=== PATIENT | female | born 1955 | race Caucasian/White ===

== ENCOUNTER 2021-10-07 12:04 | Inpatient (IN) | payer MEDICARE ==
[2021-10-07] VITALS (7 sets, daily range): BP systolic 83–107; BP diastolic 69–87
[~2021-10-07] VITALS: Ht 162.6 cm; Wt 62.2 kg
[2021-10-07] MEDS ORDERED: ASPIRIN 325 MG TABLET PO ONE (13:45)
[2021-10-07 13:47] LABS: BASO % 0 % (0-3); EOS % 0 % (0-3); HEMATOCRIT 47.1 % (36.0-47.0); HEMOGLOBIN 16.1 g/dL (12.0-15.5); LYMPH # 1.6 x10^3/uL (1.0-4.8); LYMPH % 18 % (24-48); MEAN CORPUSCULAR HEMOGLOBIN 35 pg (25-35); MEAN CORPUSCULAR HGB CONC 34 g/dL (31-37); MEAN CORPUSCULAR VOLUME 103 fL (79-100); MONO # 0.9 x10^3/uL (0.0-1.1); MONO % 10 % (0-9); NEUT # 6.3 x10^3/uL (1.8-7.7); NEUT % 72 % (31-73); PLATELET COUNT 221 x10^3/uL (140-400); RED BLOOD COUNT 4.57 x10^6/uL (3.50-5.40); RED CELL DISTRIBUTION WIDTH 13.5 % (11.5-14.5); WHITE BLOOD COUNT 8.8 x10^3/uL (4.0-11.0)
--- NOTE | 2021-10-07 13:51 | PHYS DOC ---
Past Medical History Past Surgical History: Appendectomy, Hysterectomy Additional Past Surgical Histo: Hernia repair and breast implants and removal of breast implants. General Adult EDM: Chief Complaint: MULTIPLE COMPLAINTS HPI: HPI: Patient is a 66 year old female with no significant medical history presenting today complaining of her heart racing. Patient states she was diagnosed with A. fib on Tuesday, she states she was seen by the PCP for toe nail removal and mentioned her heart was racing, PCP sent her to urgent care where she was diagnosed with A. fib, she states she was started on Cardizem, and was supposed to be admitted, she states she signed out AMA because it was taking too long. She states her heart is still racing. Denies any chest pain, shortness of breath. Review of Systems: Review of Systems: Constitutional: Denies fever or chills. [] Eyes: Denies change in visual acuity. [] HENT: Denies nasal congestion or sore throat. [] Respiratory: Denies cough or shortness of breath. [] Cardiovascular: Reports palpitations GI: Denies abdominal pain, nausea, vomiting, bloody stools or diarrhea. [] : Denies dysuria. [] Musculoskeletal: Denies back pain or joint pain. [] Integument: Denies rash. [] Neurologic: Denies headache, focal weakness or sensory changes. [] Psychiatric: Denies depression or anxiety. [] Heart Score: C/O Chest Pain: N/A Risk Factors: Risk Factors: DM, Current or recent (<one month) smoker, HTN, HLP, family history of CAD, obesity. Risk Scores: Score 0 - 3: 2.5% MACE over next 6 weeks - Discharge Home Score 4 - 6: 20.3% MACE over next 6 weeks - Admit for Clinical Observation Score 7 - 10: 72.7% MACE over next 6 weeks - Early Invasive Strategies Current Medications: Current Medications Medications (Trade) Dose Ordered Sig/Toan Start Time Stop Time Status Last Admin Dose Admin Aspirin (Estefania Aspirin) 325 mg 1X ONCE 10/07/21 13:45 10/07/21 13:46 DC Diltiazem HCl (Cardizem Iv Push) 20 mg 1X ONCE 10/07/21 13:45 10/07/21 13:46 DC Diltiazem HCl 125 mg/Sodium Chloride 125 ml @ 10 mls/hr 1X ONCE 10/07/21 13:45 10/08/21 02:14 Allergies: Allergies: Allergies Coded Allergies Type Severity Reaction Last Updated Verified No Known Drug Allergies 10/07/21 No Physical Exam: PE: Constitutional: Well developed, well nourished, no acute distress, non-toxic appearance. [] HENT: Normocephalic, atraumatic, bilateral external ears normal, oropharynx moist, no oral exudates, nose normal. [] Eyes: PERRLA, EOMI, conjunctiva normal, no discharge. [] Neck: Normal range of motion, no tenderness, supple, no stridor. [] Cardiovascular: Irregularly irregular Lungs & Thorax: Bilateral breath sounds clear to auscultation [] Abdomen: Bowel sounds normal, soft, no tenderness, no masses, no pulsatile masses. [] Skin: Warm, dry, no erythema, no rash. [] Back: No tenderness, no CVA tenderness. [] Extremities: No tenderness, no cyanosis, no clubbing, ROM intact, no edema. [] Neurologic: Alert and oriented X 3, normal motor function, normal sensory function, no focal deficits noted. [] Psychologic: Affect normal, judgement normal, mood normal. [] Current Patient Data: Vital Signs: Vital Signs Date Time Temp Pulse Resp B/P (MAP) Pulse Ox O2 Delivery O2 Flow Rate FiO2 10/07/21 12:30 98.2 93 20 120/96 (104) 94 Room Air 98.2 EKG: EK interpreted by Dr. Bruno frias with RVR heart rate 139 no STEMI Radiology/Procedures: Radiology/Procedures: []PROCEDURE: PORTABLE CHEST 1V EXAM: XR CHEST 1V 10/07/2021 1:40 PM CLINICAL INDICATION: Palpitations COMPARISON: None TECHNIQUE: AP upright view of the chest FINDINGS: The heart is enlarged. There are right basilar airspace opacities. Small right pleural effusion. The left lung is clear. No pneumothorax. IMPRESSION: 1. Right basilar opacities suspicious for pneumonia. Small right pleural effusion. 2. Cardiomegaly. Electronically signed by: Brittany Fortune MD (10/07/2021 1:55 PM) [id number] DICTATED and SIGNED BY: BRITTANY FORTUNE MD DATE: 10/07/21 [id number] 0 Course & Med Decision Making: Course & Med Decision Making Pertinent Labs and Imaging studies reviewed. (See chart for details) This is a 66-year-old female patient who presents to the ED today complaining of palpitations. She was diagnosed with A. fib on Tuesday and started on Cardizem she is supposed to be admitted, she signed out AGAINST MEDICAL ADVICE. EKG shows A. fib with RVR, given Cardizem push and started on Cardizem drip. CBC with a normal WBC, hemoglobin 16.1 with hematocrit of 47.1, CMP with potassium of 2.9, patient was given oral potassium replacement, magnesium 1.5, alcohol level 20. BNP 1524 Chest x-ray noted for right lower lobe pneumonia, blood cultures were ordered, patient was also started on IV antibiotics. Spoke with Cydney DUMONT for cardiology who will follow up with patient Spoke with Dr. Alamo who accepted patient for admission Dragon Disclaimer: Elizabeth Disclaimer: This electronic medical record was generated, in whole or in part, using a voice recognition dictation system. Departure Departure Impression: Primary Impression: Atrial fibrillation with RVR Additional Impressions: RLL pneumonia Qualified Codes: J18.9 - Pneumonia, unspecified organism ETOH abuse Hypokalemia Disposition: ADMITTED INPATIENT Condition: STABLE AUDELIA VARELA LEAD QUALITY TECHNICIAN Oct 07, 2021 13:51
--- NOTE | 2021-10-07 13:58 | RAD ---
EXAM: XR CHEST 1V 10/07/2021 1:40 PM CLINICAL INDICATION: Palpitations COMPARISON: None TECHNIQUE: AP upright view of the chest FINDINGS: The heart is enlarged. There are right basilar airspace opacities. Small right pleural eff usion. The left lung is clear. No pneumothorax. IMPRESSION: 1. Right basilar opacities suspicious for pneumonia. Small right pleural effusion. 2. Cardiomegaly. Electronically signed by: Brittany Fortune MD (10/07/2021 1:55 PM) [id number]
[2021-10-07 14:15] LABS: ALBUMIN 3.4 g/dL (3.4-5.0); ALBUMIN/GLOBULIN RATIO 0.8 (1.0-1.7); CALCIUM 8.8 mg/dL (8.5-10.1); CREATININE 0.7 mg/dL (0.6-1.0); MAGNESIUM 1.5 mg/dL (1.8-2.4); TOTAL PROTEIN 7.6 g/dL (6.4-8.2)
[2021-10-07 14:32] LABS: POTASSIUM 2.9 mmol/L (3.5-5.1)
[2021-10-07] MEDS ORDERED: POTASSIUM CHLORIDE 20 MEQ TABLET.ER. PO ONE ×2 (14:45→19:30)
[2021-10-07 15:25] LABS: BILIRUBIN,URINE SMALL (NEG); CLARITY,URINE CLEAR; COLOR,URINE AMBER; NITRITE,URINE NEGATIVE (NEG); PROTEIN,URINE 100 mg/dL (NEG-TRACE)
[2021-10-07 15:33] LABS: BARBITURATES NEG (NEG); BENZODIAZEPINES POS (NEG); CANNABINOIDS NEG (NEG); COCAINE NEG (NEG); METHADONE NEG (NEG); OPIATES NEG (NEG); PHENCYCLIDINE NEG (NEG)
[2021-10-07 15:36] LABS: AMPHETAMINE/METHAMPHETAMINE NEG (NEG)
[2021-10-07] MEDS ORDERED: ONDANSETRON PF 4 MG/2 ML VIAL. IVP ONE (15:45)
[2021-10-07 16:00] LABS: BACTERIA,URINE FEW /HPF (0-FEW)
[2021-10-07] MEDS ORDERED: cefTRIAXone IV Push 1 GM VIAL. IVP ONE (16:45)
[2021-10-07] MEDS ORDERED: MORPHINE SULFATE 2 MG/ML INJ. IVP PRN (16:45)
[2021-10-07] MEDS ORDERED: ACETAMINOPHEN 325 MG TABLET. PO PRN (16:45)
[2021-10-07] MEDS ORDERED: ONDANSETRON PF 4 MG/2 ML VIAL. IVP PRN (16:45)
--- NOTE | 2021-10-07 18:00 | EKG ---
[address] [place] [address] Test Date: 2021-10-07 Test Time: 12:48:02 Pat Name: CINDY LOYA Department: Room: ED [place] [id number] Gender: F Feed Management Advisor: - : [phone] Requested By: AUDELIA VARELA Order Number: [id number] Reading MD: Navid Nicholson Measurements Intervals [place] Rate: 139 P: HI: QRS: 0 QRSD: 108 T: 195 QT: 318 QTc: 489 Interpretive Statements RAPID ATRIAL FIBRILLATION LEFTWARD AXIS CONSIDER LEFT VENTRICULAR HYPERTROPHY NON SPECIFIC ST-T WAVE CHANGES Electronically Signed On 10-11-2021 18:04:03 AFLOAT CRYPTOLOGIC MANAGER by Navid Nicholson
[2021-10-07 18:15] LABS: INFLUENZA A PATIENT NEGATIVE (NEGATIVE); INFLUENZA B PATIENT NEGATIVE (NEGATIVE)
[2021-10-07] MEDS ORDERED: MAGNESIUM SULFATE 4GM 100 ML IV ONE (19:30)
[2021-10-07] MEDS ORDERED: MULTIVIT INFUSN,ADULT 4,VIT K 10 ML, THIAMINE INJ 100 MG, FOLIC ACID INJ 1 MG in IV NOR... IV ONE (20:00)
--- NOTE | 2021-10-07 20:02 | PDOC1 ---
History and Physical Date of Admission Date of Admission DATE: 10/07/21 TIME: 19:56 Source Source: Chart review, Patient History of Present Illness History of Present Illness Sis is a 66 year old female admit wtih palpitations, complained of her heart racing. Patient states she was diagnosed with A. fib on Tuesday, seen by the PCP and mentioned her heart was racing, Dr. Lucas sent her to urgent care where she was diagnosed with A. fib, did not want to be admitted to [facility]. tohay, she is short of breath and she states her heart is still racing. Denies any chest pain, shortness of breath. not prev. hospitalzied, never on before Past Medical History Cardiovascular: No pertinent hx Pulmonary: No pertinent hx GI: No pertinent hx Psych: Anxiety Musculoskeletal: low back pain Rheumatologic: No pertinent hx Infectious disease: No pertinent hx Renal/: No pertinent hx Endocrine: No pertinent hx Dermatology: No pertinent hx Family History Family History: No Significant Social History Smoke: 1 pack per day ALCOHOL: heavy Drugs: None Current Problem List Problem List Problems Medical Problems: (1) Atrial fibrillation with RVR Status: Acute (2) ETOH abuse Status: Acute (3) Hypokalemia Status: Acute (4) RLL pneumonia Status: Acute Current Medications Current Medications Current Medications Diltiazem HCl (Cardizem Iv Push) 20 mg 1X ONCE IVP Last administered on 10/07/21at 14:20; Start 10/07/21 at 13:45; Stop 10/07/21 at 13:46; Status DC Aspirin (Estefania Aspirin) 325 mg 1X ONCE PO Last administered on 10/07/21at 14:19; Start 10/07/21 at 13:45; Stop 10/07/21 at 13:46; Status DC Diltiazem HCl 125 mg/Sodium Chloride 125 ml @ 10 mls/hr 1X ONCE IV ; Start 10/07/21 at 13:45; Stop 10/07/21 at 13:51; Status DC Diltiazem HCl 125 mg/Sodium Chloride 125 ml @ 10 mls/hr 1X ONCE IV Last administered on 10/07/21at 15:24; Start 10/07/21 at 13:51; Stop 10/08/21 at 02:14 Potassium Chloride (Klor-Con) 40 meq 1X ONCE PO Last administered on 10/07/21at 15:23; Start 10/07/21 at 14:45; Stop 10/07/21 at 14:46; Status DC Ondansetron HCl (Zofran) 4 mg 1X ONCE IVP Last administered on 10/07/21at 15:52; Start 10/07/21 at 15:45; Stop 10/07/21 at 15:46; Status DC Ondansetron HCl (Zofran) 4 mg PRN Q8HRS PRN IVP NAUSEA/VOMITING; Start 10/07/21 at 16:45; Stop 10/08/21 at 16:44 Morphine Sulfate (Morphine Sulfate) 2 mg PRN Q2HR PRN IVP PAIN; Start 10/07/21 at 16:45; Stop 10/08/21 at 16:44 Acetaminophen (Tylenol) 650 mg PRN Q4HRS PRN PO FEVER > 100.3'F; Start 10/07/21 at 16:45; Stop 10/08/21 at 16:44 Ceftriaxone Sodium (Rocephin) 1 gm 1X ONCE IVP Last administered on 10/07/21at 17:40; Start 10/07/21 at 16:45; Stop 10/07/21 at 16:53; Status DC Potassium Chloride (Klor-Con) 40 meq 1X ONCE PO ; Start 10/07/21 at 19:30; Stop 10/07/21 at 19:31; Status DC Magnesium Sulfate 100 ml @ 25 mls/hr 1X ONCE IV ; Start 10/07/21 at 19:30; Stop 10/07/21 at 23:29 Multivitamins 10 ml/Thiamine HCl 100 mg/Folic Acid 1 mg/Sodium Chloride 1,011.2 ml @ 1,000.088 mls/hr 1X ONCE IV ; Start 10/07/21 at 20:00; Stop 10/07/21 at 21:00 Vitamin B Complex (Folbic Tablet) 1 tab DAILY PO ; Start 10/08/21 at 09:00 Lorazepam (Ativan) 1 mg PRN Q6HRS PRN PO ANXIETY / AGITATION; Start 10/07/21 at 19:30 Allergies Allergies: Coded Allergies: No Known Drug Allergies (Unverified , 10/07/21) ROS General: YES: Chills, Fatigue, Malaise PSYCHOLOGICAL ROS: YES: Anxiety, Irritablity, Sleep disturbances; No: Behavioral Disorder, Concentration difficultie, Decreased libido, Depression, Disorientation, Hallucinations, Hostility, Memory difficulties, Mood Swings, Obsessive thoughts, Other Eyes: No Blurry vision, No Decreased vision, No Double vision, No Dry eyes, No Excessive tearing, No Eye Pain, No Itchy Eyes, No Loss of vision, No Photophobia, No Scotomata, No Uses contacts, No Uses glasses, No Other HEENT: No: Heacaches, Visual Changes, Hearing change, Nasal congestion, Nasal discharge, Oral lesions, Sinus pain, Sore Throat, Epistaxis, Sneezing, Snoring, Tinnitus, Vertigo, Vocal changes, Other Respiratory: No: Cough, Hemoptysis, Orthopnea, Pleuritic Pain, Shortness of breath, SOB with excertion, Sputum Changes, Stridor, Tachypnea, Wheezing, Other Cardiovascular: yes Palpitations; No Chest Pain, No Orthopnea, No Paroxysmal Noc. Dyspnea, No Edema, No Lt Headedness, No Other Gastrointestinal: Yes Nausea; No Vomiting, No Abdominal Pain, No Diarrhea, No Constipation, No Melena, No Hematochezia, No Other Genitourinary: No Dysuria, No Frequency, No Incontinence, No Hematuria, No Retention, No Discharge, No Urgency, No Pain, No Flank Pain, No Other, No , No , No , No , No , No , No Musculoskeletal: No Gait Disturbance, No Joint Pain, No Joint Stiffness, No Joint Swelling, No Muscle Pain, No Muscular Weakness, No Pain In:, No Swelling In:, No Other Neurological: No Behavorial Changes, No Bowel/Bladder ControlChng, No Confusion, No Dizziness, No Gait Disturbance, No Headaches, No Impaired Coord/balance, No Memory Loss, No Numbness/Tingling, No Seizures, No Speech Problems, No Tremors, No Visual Changes, No Weakness, No Other Skin: Yes Dry Skin; No Eczema, No Hair Changes, No Lumps, No Mole Changes, No Mottling, No Nail Changes, No Pruritus, No Rash, No Skin Lesion Changes, No Other, No Acne Physical Exam General: Alert, Oriented X3, Cooperative, No acute distress HEENT: PERRLA, EOMI, Mucous membr. moist/pink Lungs: Clear to auscultation, Normal air movement Heart: S1S2, RRR, no murmurs Abdomen: Normal bowel sounds, Soft Extremities: No clubbing, No edema, Normal pulses Skin: No rashes, No breakdown Neuro: Normal speech, Normal tone, Sensation intact Psych/Mental Status: Mental status NL, Mood NL Vitals Vitals Vital Signs Date Time Temp Pulse Resp B/P (MAP) Pulse Ox O2 Delivery O2 Flow Rate FiO2 10/07/21 18:44 96 90/72 (78) 93 Nasal Cannula 3.0 10/07/21 12:30 98.2 20 98.2 Labs Labs Laboratory Tests Test 10/07/21 13:21 10/07/21 15:00 10/07/21 16:50 10/07/21 17:45 White Blood Count 8.8 x10^3/uL (4.0-11.0) Red Blood Count 4.57 x10^6/uL (3.50-5.40) Hemoglobin 16.1 g/dL (12.0-15.5) Hematocrit 47.1 % (36.0-47.0) Mean Corpuscular Volume 103 fL (79-100) Mean Corpuscular Hemoglobin 35 pg (25-35) Mean Corpuscular Hemoglobin Concent 34 g/dL (31-37) Red Cell Distribution Width 13.5 % (11.5-14.5) Platelet Count 221 x10^3/uL (140-400) Neutrophils (%) (Auto) 72 % (31-73) Lymphocytes (%) (Auto) 18 % (24-48) Monocytes (%) (Auto) 10 % (0-9) Eosinophils (%) (Auto) 0 % (0-3) Basophils (%) (Auto) 0 % (0-3) Neutrophils # (Auto) 6.3 x10^3/uL (1.8-7.7) Lymphocytes # (Auto) 1.6 x10^3/uL (1.0-4.8) Monocytes # (Auto) 0.9 x10^3/uL (0.0-1.1) Eosinophils # (Auto) 0.0 x10^3/uL (0.0-0.7) Basophils # (Auto) 0.0 x10^3/uL (0.0-0.2) Sodium Level 140 mmol/L (136-145) Potassium Level 2.9 mmol/L (3.5-5.1) Chloride Level 100 mmol/L (98-107) Carbon Dioxide Level 26 mmol/L (21-32) Anion Gap 14 (6-14) Blood Urea Nitrogen 8 mg/dL (7-20) Creatinine 0.7 mg/dL (0.6-1.0) Estimated GFR (Cockcroft-Gault) 84.0 BUN/Creatinine Ratio 11 (6-20) Glucose Level 109 mg/dL (70-99) Calcium Level 8.8 mg/dL (8.5-10.1) Magnesium Level 1.5 mg/dL (1.8-2.4) Total Bilirubin 2.0 mg/dL (0.2-1.0) Aspartate Amino Transf (AST/SGOT) 26 U/L (15-37) Alanine Aminotransferase (ALT/SGPT) 21 U/L (14-59) Alkaline Phosphatase 93 U/L (46-116) Troponin I High Sensitivity 33 ng/L (4-50) 35 ng/L (4-50) UM-Uhd-V-Type Natriuretic Peptide 1524 pg/mL (0-124) Total Protein 7.6 g/dL (6.4-8.2) Albumin 3.4 g/dL (3.4-5.0) Albumin/Globulin Ratio 0.8 (1.0-1.7) Thyroid Stimulating Hormone (TSH) 2.709 uIU/mL (0.358-3.74) Ethyl Alcohol Level 20 mg/dL (0-10) Urine Color Anayeli Urine Clarity Clear Urine pH 6.0 (<5.0-8.0) Urine Specific [place] 1.015 (1.000-1.030) Urine Protein 100 mg/dL (NEG-TRACE) Urine Glucose (UA) Negative mg/dL (NEG) Urine Ketones (Stick) Trace mg/dL (NEG) Urine Blood Moderate (NEG) Urine Nitrite Negative (NEG) Urine Bilirubin Small (NEG) Urine Urobilinogen Dipstick 1.0 mg/dL (0.2 mg/dL) Urine Leukocyte Esterase Small (NEG) Urine RBC 3-5 /HPF (0-2) Urine WBC 5-10 /HPF (0-4) Urine Squamous Epithelial Cells Many /LPF Urine Bacteria Few /HPF (0-FEW) Urine Mucus Slight /LPF Urine Opiates Screen Neg (NEG) Urine Methadone Screen Neg (NEG) Urine Barbiturates Neg (NEG) Urine Phencyclidine Screen Neg (NEG) Urine Amphetamine/Methamphetamine Neg (NEG) Urine Benzodiazepines Screen Pos (NEG) Urine Cocaine Screen Neg (NEG) Urine Cannabinoids Screen Neg (NEG) Urine Ethyl Alcohol Pos (NEG) Influenza Type A Antigen Negative (NEGATIVE) Influenza Type B Antigen Negative (NEGATIVE) SARS-CoV-2 Antigen (Rapid) Negative (NEGATIVE) Laboratory Tests Test 10/07/21 13:21 10/07/21 15:00 10/07/21 16:50 10/07/21 17:45 White Blood Count 8.8 x10^3/uL (4.0-11.0) Red Blood Count 4.57 x10^6/uL (3.50-5.40) Hemoglobin 16.1 g/dL (12.0-15.5) Hematocrit 47.1 % (36.0-47.0) Mean Corpuscular Volume 103 fL (79-100) Mean Corpuscular Hemoglobin 35 pg (25-35) Mean Corpuscular Hemoglobin Concent 34 g/dL (31-37) Red Cell Distribution Width 13.5 % (11.5-14.5) Platelet Count 221 x10^3/uL (140-400) Neutrophils (%) (Auto) 72 % (31-73) Lymphocytes (%) (Auto) 18 % (24-48) Monocytes (%) (Auto) 10 % (0-9) Eosinophils (%) (Auto) 0 % (0-3) Basophils (%) (Auto) 0 % (0-3) Neutrophils # (Auto) 6.3 x10^3/uL (1.8-7.7) Lymphocytes # (Auto) 1.6 x10^3/uL (1.0-4.8) Monocytes # (Auto) 0.9 x10^3/uL (0.0-1.1) Eosinophils # (Auto) 0.0 x10^3/uL (0.0-0.7) Basophils # (Auto) 0.0 x10^3/uL (0.0-0.2) Sodium Level 140 mmol/L (136-145) Potassium Level 2.9 mmol/L (3.5-5.1) Chloride Level 100 mmol/L (98-107) Carbon Dioxide Level 26 mmol/L (21-32) Anion Gap 14 (6-14) Blood Urea Nitrogen 8 mg/dL (7-20) Creatinine 0.7 mg/dL (0.6-1.0) Estimated GFR (Cockcroft-Gault) 84.0 BUN/Creatinine Ratio 11 (6-20) Glucose Level 109 mg/dL (70-99) Calcium Level 8.8 mg/dL (8.5-10.1) Magnesium Level 1.5 mg/dL (1.8-2.4) Total Bilirubin 2.0 mg/dL (0.2-1.0) Aspartate Amino Transf (AST/SGOT) 26 U/L (15-37) Alanine Aminotransferase (ALT/SGPT) 21 U/L (14-59) Alkaline Phosphatase 93 U/L (46-116) Troponin I High Sensitivity 33 ng/L (4-50) 35 ng/L (4-50) AB-Rcc-T-Type Natriuretic Peptide 1524 pg/mL (0-124) Total Protein 7.6 g/dL (6.4-8.2) Albumin 3.4 g/dL (3.4-5.0) Albumin/Globulin Ratio 0.8 (1.0-1.7) Thyroid Stimulating Hormone (TSH) 2.709 uIU/mL (0.358-3.74) Ethyl Alcohol Level 20 mg/dL (0-10) Urine Color Anayeli Urine Clarity Clear Urine pH 6.0 (<5.0-8.0) Urine Specific [place] 1.015 (1.000-1.030) Urine Protein 100 mg/dL (NEG-TRACE) Urine Glucose (UA) Negative mg/dL (NEG) Urine Ketones (Stick) Trace mg/dL (NEG) Urine Blood Moderate (NEG) Urine Nitrite Negative (NEG) Urine Bilirubin Small (NEG) Urine Urobilinogen Dipstick 1.0 mg/dL (0.2 mg/dL) Urine Leukocyte Esterase Small (NEG) Urine RBC 3-5 /HPF (0-2) Urine WBC 5-10 /HPF (0-4) Urine Squamous Epithelial Cells Many /LPF Urine Bacteria Few /HPF (0-FEW) Urine Mucus Slight /LPF Urine Opiates Screen Neg (NEG) Urine Methadone Screen Neg (NEG) Urine Barbiturates Neg (NEG) Urine Phencyclidine Screen Neg (NEG) Urine Amphetamine/Methamphetamine Neg (NEG) Urine Benzodiazepines Screen Pos (NEG) Urine Cocaine Screen Neg (NEG) Urine Cannabinoids Screen Neg (NEG) Urine Ethyl Alcohol Pos (NEG) Influenza Type A Antigen Negative (NEGATIVE) Influenza Type B Antigen Negative (NEGATIVE) SARS-CoV-2 Antigen (Rapid) Negative (NEGATIVE) VTE Prophylaxis Ordered VTE Prophylaxis Devices: No VTE Pharmacological Prophylaxi: Yes Assessment/Plan Assessment/Plan acute hypoxic respiratory failure Acute diastolic CHF atrial fibrillation with RVR tobacco use disorder, cessation rec. anxiety disorder, Dr. Ruiz refills her Xanax, anxiety is some job related, [facility] is a [facility] [employer] [facility], cessation discussed, will give vitamins, cont benzos Justifications for Admission Other Justification KIRK WAY MD Oct 07, 2021 20:02
[2021-10-07] MEDS ORDERED: NICOTINE 21MG PATCH. TD PRN (20:15)
[2021-10-07] MEDS: IPRATRPIUM/ALBUTEROL 0.5/2.5MG 3 ML NEBU. NEB SCH (20:20)
[2021-10-07] MEDS ORDERED: ANTI-COAG MONITOR BY PHARMACY. MC PRN (20:30)
[2021-10-07] MEDS ORDERED: PROC10TA57 PO (20:51)
[2021-10-07] MEDS ORDERED: ASPI325T8 PO (20:51)
[2021-10-07] MEDS ORDERED: ALPR1TAB2 PO (20:51)
[2021-10-07] MEDS: APIXABAN 5 MG TABLET. PO SCH (22:22)
[2021-10-08] VITALS (10 sets, daily range): BP systolic 85–122; BP diastolic 57–87
[2021-10-08 06:42] LABS: BASO % 1 % (0-3); EOS % 1 % (0-3); HEMATOCRIT 43.7 % (36.0-47.0); HEMOGLOBIN 15.1 g/dL (12.0-15.5); LYMPH # 1.3 x10^3/uL (1.0-4.8); LYMPH % 18 % (24-48); MEAN CORPUSCULAR HEMOGLOBIN 36 pg (25-35); MEAN CORPUSCULAR HGB CONC 35 g/dL (31-37); MEAN CORPUSCULAR VOLUME 104 fL (79-100); MONO # 0.7 x10^3/uL (0.0-1.1); MONO % 9 % (0-9); NEUT # 5.2 x10^3/uL (1.8-7.7); NEUT % 72 % (31-73); PLATELET COUNT 197 x10^3/uL (140-400); RED BLOOD COUNT 4.22 x10^6/uL (3.50-5.40); RED CELL DISTRIBUTION WIDTH 13.4 % (11.5-14.5); WHITE BLOOD COUNT 7.2 x10^3/uL (4.0-11.0)
[2021-10-08] MEDS: IPRATRPIUM/ALBUTEROL 0.5/2.5MG 3 ML NEBU. NEB SCH ×4 (06:47→20:00)
[2021-10-08 07:10] LABS: ALBUMIN 2.9 g/dL (3.4-5.0); ALBUMIN/GLOBULIN RATIO 0.7 (1.0-1.7); CALCIUM 8.2 mg/dL (8.5-10.1); CREATININE 0.7 mg/dL (0.6-1.0); POTASSIUM 3.6 mmol/L (3.5-5.1); TOTAL PROTEIN 6.8 g/dL (6.4-8.2)
[2021-10-08] MEDS ORDERED: dilTIAZem HCL 125 MG in IV DEXTROSE 5% 100ML 100 ML IV PRN (08:45)
[2021-10-08] MEDS: VITAMIN B12,B9,B6 COMPLEX 1 TABLET. PO SCH (09:00)
[2021-10-08] MEDS: APIXABAN 5 MG TABLET. PO SCH ×2 (09:00→20:06)
[2021-10-08 09:05] LABS: CHOLESTEROL/HDL RATIO 3.7
--- NOTE | 2021-10-08 11:23 | PDOC2 ---
CARDIAC CONSULT DATE OF CONSULT Date of Consult DATE: 10/08/21 TIME: 11:13 REASON FOR CONSULT Reason for Consult: AFIB REFERRING PHYSICIAN Referring Physician: Natalia Hill APRN SOURCE Source: Chart review, Patient HISTORY OF PRESENT ILLNESS HISTORY OF PRESENT ILLNESS This is a 66 yo female who presented secondary to heart racing. Was noted in AFIB, which prompted this consult. Patient reports she had toenail removed earlier this week by here primary care provider and heart was noted to be racing. Was sent to [place] ED and was noted in AFIB. Was started on Cardizem for rate control. Patient unfortunately left A [facility] as she sat in the ED for 8 hours and did not feeling like this were getting accomplished. She underwent CT head that did not shows acute stroke. Since Tuesday, patient has become more weak and has had difficulty ambulating. Denies any chest pain, dizziness, diaphoresis. Significant other is concerned that she drinks heavily and does not eat well. PAST MEDICAL HISTORY Psych: Anxiety Musculoskeletal: Osteoarthritis PAST SURGICAL HISTORY Past Surgical History: Appendectomy, Hernia Repair, Hysterectomy FAMILY HISTORY Family History: Hypertension SOCIAL HISTORY Smoke: 1 pack per day ALCOHOL: heavy Drugs: None Lives: with Family CURRENT MEDICATIONS CURRENT MEDICATIONS Current Medications Medications (Trade) Dose Ordered Sig/Toan Route PRN Reason Start Time Stop Time Status Last Admin Dose Admin Diltiazem HCl (Cardizem Iv Push) 20 mg 1X ONCE IVP 10/07/21 13:45 10/07/21 13:46 DC 10/07/21 14:20 Aspirin (Estefania Aspirin) 325 mg 1X ONCE PO 10/07/21 13:45 10/07/21 13:46 DC 10/07/21 14:19 Diltiazem HCl 125 mg/Sodium Chloride 125 ml @ 10 mls/hr 1X ONCE IV 10/07/21 13:51 10/08/21 02:14 DC 10/07/21 15:24 Potassium Chloride (Klor-Con) 40 meq 1X ONCE PO 10/07/21 14:45 10/07/21 14:46 DC 10/07/21 15:23 Ondansetron HCl (Zofran) 4 mg 1X ONCE IVP 10/07/21 15:45 10/07/21 15:46 DC 10/07/21 15:52 Ceftriaxone Sodium (Rocephin) 1 gm 1X ONCE IVP 10/07/21 16:45 10/07/21 16:53 DC 10/07/21 17:40 Potassium Chloride (Klor-Con) 40 meq 1X ONCE PO 10/07/21 19:30 10/07/21 19:31 DC 10/07/21 22:22 Magnesium Sulfate 100 ml @ 25 mls/hr 1X ONCE IV 10/07/21 19:30 10/07/21 23:29 DC 10/07/21 22:39 Multivitamins 10 ml/Thiamine HCl 100 mg/Folic Acid 1 mg/Sodium Chloride 1,011.2 ml @ 1,000.088 mls/hr 1X ONCE IV 10/07/21 20:00 10/07/21 21:00 DC 10/07/21 20:00 Vitamin B Complex (Folbic Tablet) 1 tab DAILY PO 10/08/21 09:00 10/08/21 09:00 Lorazepam (Ativan) 1 mg PRN Q6HRS PRN PO ANXIETY / AGITATION 10/07/21 19:30 10/07/21 22:22 Apixaban (Eliquis) 5 mg BID PO 10/07/21 21:00 10/08/21 09:00 ALLERGIES ALLERGIES: Coded Allergies: No Known Drug Allergies (Unverified , 10/07/21) ROS Review of System 14 point ROS conducted with pertinent positives noted above in HPI PHYSICAL EXAM General: Alert, Oriented X3, Cooperative, No acute distress HEENT: Atraumatic, Mucous membr. moist/pink Lungs: Clear to auscultation Heart: Other (IRRR; tele AFIB ) Abdomen: No tenderness Extremities: No edema Skin: No significant lesion Neuro: Normal speech, Sensation intact Psych/Mental Status: Other (flat affect ) MUSCULOSKELETAL: Osteoarthritic changes both hands VITALS/I&O VITALS/I&O: Vital Signs Date Time Temp Pulse Resp B/P (MAP) Pulse Ox O2 Delivery O2 Flow Rate FiO2 10/08/21 10:42 96.0 93 18 85/74 (78) 100 Nasal Cannula 96.0 10/08/21 08:00 3.0 I & O 10/07/21 10/07/21 10/08/21 15:00 23:00 07:00 Intake Total 100 ml 80 ml Output Total 100 ml Balance 100 ml -20 ml LABS Lab: Laboratory Tests Test 2/23/22 13:21 10/07/21 15:00 10/07/21 16:50 10/07/21 17:45 White Blood Count 8.8 x10^3/uL (4.0-11.0) Red Blood Count 4.57 x10^6/uL (3.50-5.40) Hemoglobin 16.1 g/dL (12.0-15.5) H Hematocrit 47.1 % (36.0-47.0) H Mean Corpuscular Volume 103 fL (79-100) H Mean Corpuscular Hemoglobin 35 pg (25-35) Mean Corpuscular Hemoglobin Concent 34 g/dL (31-37) Red Cell Distribution Width 13.5 % (11.5-14.5) Platelet Count 221 x10^3/uL (140-400) Neutrophils (%) (Auto) 72 % (31-73) Lymphocytes (%) (Auto) 18 % (24-48) L Monocytes (%) (Auto) 10 % (0-9) H Eosinophils (%) (Auto) 0 % (0-3) Basophils (%) (Auto) 0 % (0-3) Neutrophils # (Auto) 6.3 x10^3/uL (1.8-7.7) Lymphocytes # (Auto) 1.6 x10^3/uL (1.0-4.8) Monocytes # (Auto) 0.9 x10^3/uL (0.0-1.1) Eosinophils # (Auto) 0.0 x10^3/uL (0.0-0.7) Basophils # (Auto) 0.0 x10^3/uL (0.0-0.2) Sodium Level 140 mmol/L (136-145) Potassium Level 2.9 mmol/L (3.5-5.1) *L Chloride Level 100 mmol/L (98-107) Carbon Dioxide Level 26 mmol/L (21-32) Anion Gap 14 (6-14) Blood Urea Nitrogen 8 mg/dL (7-20) Creatinine 0.7 mg/dL (0.6-1.0) Estimated GFR (Cockcroft-Gault) 84.0 BUN/Creatinine Ratio 11 (6-20) Glucose Level 109 mg/dL (70-99) H Calcium Level 8.8 mg/dL (8.5-10.1) Magnesium Level 1.5 mg/dL (1.8-2.4) L Total Bilirubin 2.0 mg/dL (0.2-1.0) H Aspartate Amino Transferase (AST) 26 U/L (15-37) Alanine Aminotransferase (ALT) 21 U/L (14-59) Alkaline Phosphatase 93 U/L (46-116) Troponin I High Sensitivity 33 ng/L (4-50) 35 ng/L (4-50) ZP-Lkd-T-Type Natriuretic Peptide 1524 pg/mL (0-124) H Total Protein 7.6 g/dL (6.4-8.2) Albumin 3.4 g/dL (3.4-5.0) Albumin/Globulin Ratio 0.8 (1.0-1.7) L Thyroid Stimulating Hormone (TSH) 2.709 uIU/mL (0.358-3.74) Ethyl Alcohol Level 20 mg/dL (0-10) H Urine Color Anayeli Urine Clarity Clear Urine pH 6.0 (<5.0-8.0) Urine Specific [place] 1.015 (1.000-1.030) Urine Protein 100 mg/dL (NEG-TRACE) Urine Glucose (UA) Negative mg/dL (NEG) Urine Ketones (Stick) Trace mg/dL (NEG) Urine Blood Moderate (NEG) Urine Nitrite Negative (NEG) Urine Bilirubin Small (NEG) Urine Urobilinogen Dipstick 1.0 mg/dL (0.2 mg/dL) Urine Leukocyte Esterase Small (NEG) Urine RBC 3-5 /HPF (0-2) Urine WBC 5-10 /HPF (0-4) Urine Squamous Epithelial Cells Many /LPF Urine Bacteria Few /HPF (0-FEW) Urine Mucus Slight /LPF Urine Opiates Screen Neg (NEG) Urine Methadone Screen Neg (NEG) Urine Barbiturates Neg (NEG) Urine Phencyclidine Screen Neg (NEG) Urine Amphetamine/Methamphetamine Neg (NEG) Urine Benzodiazepines Screen Pos (NEG) Urine Cocaine Screen Neg (NEG) Urine Cannabinoids Screen Neg (NEG) Urine Ethyl Alcohol Pos (NEG) SARS-CoV-2 (PCR) Not detected (NOT DETECTD) Influenza Type A Antigen Negative (NEGATIVE) Influenza Type B Antigen Negative (NEGATIVE) SARS-CoV-2 Antigen (Rapid) Negative (NEGATIVE) Test 10/07/21 20:50 10/07/21 21:10 10/08/21 06:05 Troponin I High Sensitivity 33 ng/L (4-50) Lactic Acid Level 1.0 mmol/L (0.4-2.0) White Blood Count 7.2 x10^3/uL (4.0-11.0) Red Blood Count 4.22 x10^6/uL (3.50-5.40) Hemoglobin 15.1 g/dL (12.0-15.5) Hematocrit 43.7 % (36.0-47.0) Mean Corpuscular Volume 104 fL (79-100) H Mean Corpuscular Hemoglobin 36 pg (25-35) H Mean Corpuscular Hemoglobin Concent 35 g/dL (31-37) Red Cell Distribution Width 13.4 % (11.5-14.5) Platelet Count 197 x10^3/uL (140-400) Neutrophils (%) (Auto) 72 % (31-73) Lymphocytes (%) (Auto) 18 % (24-48) L Monocytes (%) (Auto) 9 % (0-9) Eosinophils (%) (Auto) 1 % (0-3) Basophils (%) (Auto) 1 % (0-3) Neutrophils # (Auto) 5.2 x10^3/uL (1.8-7.7) Lymphocytes # (Auto) 1.3 x10^3/uL (1.0-4.8) Monocytes # (Auto) 0.7 x10^3/uL (0.0-1.1) Eosinophils # (Auto) 0.0 x10^3/uL (0.0-0.7) Basophils # (Auto) 0.0 x10^3/uL (0.0-0.2) Sodium Level 142 mmol/L (136-145) Potassium Level 3.6 mmol/L (3.5-5.1) Chloride Level 103 mmol/L (98-107) Carbon Dioxide Level 26 mmol/L (21-32) Anion Gap 13 (6-14) Blood Urea Nitrogen 11 mg/dL (7-20) Creatinine 0.7 mg/dL (0.6-1.0) Estimated GFR (Cockcroft-Gault) 84.0 BUN/Creatinine Ratio 16 (6-20) Glucose Level 107 mg/dL (70-99) H Calcium Level 8.2 mg/dL (8.5-10.1) L Total Bilirubin 2.0 mg/dL (0.2-1.0) H Aspartate Amino Transferase (AST) 22 U/L (15-37) Alanine Aminotransferase (ALT) 21 U/L (14-59) Alkaline Phosphatase 81 U/L (46-116) Total Protein 6.8 g/dL (6.4-8.2) Albumin 2.9 g/dL (3.4-5.0) L Albumin/Globulin Ratio 0.7 (1.0-1.7) L Triglycerides Level 69 mg/dL (0-150) Cholesterol Level 202 mg/dL (0-200) H LDL Cholesterol, Calculated 133 mg/dL (0-100) H VLDL Cholesterol, Calculated 14 mg/dL (0-40) Non-HDL Cholesterol Calculated 147 mg/dL (0-129) H HDL Cholesterol 55 mg/dL (40-60) Cholesterol/HDL Ratio 3.7 Laboratory Tests 10/07/21 13:21 10/08/21 06:05 Laboratory Tests 10/07/21 13:21 10/08/21 06:05 ASSESSMENT/PLAN ASSESSMENT/PLAN 1. New onset AFIB with RVR; on Cardizem gtt. Remains in AFIB 2. Mild acute probable diastolic CHF 3. Hypokalemia, hypomagnesemia; s/p replacement 4. ETOH abuse 5. Tobaccoism 6. Anxiety Recommendations Start metoprolol for rate control Titrate off Cardizem gtt Eliquis added for stroke prophylaxis Discussed cessation from tobacco, alcohol TSH Echo to assess LV systolic function Probable outpatient ischemic evaluation Consider outpatient CV if patient remains in AFIB Further pending above. ALMAS SHORT APRN Oct 08, 2021 11:23
--- NOTE | 2021-10-08 11:54 | PDOC ---
[employer] PROGRESS NOTE Date of Service DOS: DATE: 10/08/21 TIME: 11:52 Chief Complaint Chief Complaint acute hypoxic respiratory failure Acute diastolic CHF atrial fibrillation with RVR tobacco use disorder, cessation rec. anxiety disorder, Dr. Ruiz refills her Xanax, anxiety is some job rel ated, [facility], banana bag, cont benzos History of Present Illness History of Present Illness her came to find me to today to discus her overuse of tobacco and alcoho l. I showed him the banana bag and discussed how I guess that was the case althought kassyn denies. still weak and short of breath today from days of lack of treatmetn of the AFIB RVR< CV following consult PAT team for outpatient f/u Vitals/I&O Vitals/I&O: Vital Signs Date Time Temp Pulse Resp B/P (MAP) Pulse Ox O2 Delivery O2 Flow Rate FiO2 10/08/21 10:42 96.0 93 18 85/74 (78) 100 Nasal Cannula 96.0 10/08/21 08:00 3.0 I & O 10/07/21 10/07/21 10/08/21 15:00 23:00 07:00 Intake Total 100 ml 80 ml Output Total 100 ml Balance 100 ml -20 ml Physical Exam General: Alert, Oriented X3, Cooperative, No acute distress Heart: Other (irreg, irreg, rate better controlled) Lungs: Clear Abdomen: Normal bowel sounds, Soft Extremities: No clubbing, No edema, Normal pulses Skin: No rashes, No breakdown Labs Labs: Laboratory Tests Test 10/07/21 13:21 10/07/21 15:00 10/07/21 16:50 10/07/21 17:45 White Blood Count 8.8 x10^3/uL (4.0-11.0) Red Blood Count 4.57 x10^6/uL (3.50-5.40) Hemoglobin 16.1 g/dL (12.0-15.5) Hematocrit 47.1 % (36.0-47.0) Mean Corpuscular Volume 103 fL (79-100) Mean Corpuscular Hemoglobin 35 pg (25-35) Mean Corpuscular Hemoglobin Concent 34 g/dL (31-37) Red Cell Distribution Width 13.5 % (11.5-14.5) Platelet Count 221 x10^3/uL (140-400) Neutrophils (%) (Auto) 72 % (31-73) Lymphocytes (%) (Auto) 18 % (24-48) Monocytes (%) (Auto) 10 % (0-9) Eosinophils (%) (Auto) 0 % (0-3) Basophils (%) (Auto) 0 % (0-3) Neutrophils # (Auto) 6.3 x10^3/uL (1.8-7.7) Lymphocytes # (Auto) 1.6 x10^3/uL (1.0-4.8) Monocytes # (Auto) 0.9 x10^3/uL (0.0-1.1) Eosinophils # (Auto) 0.0 x10^3/uL (0.0-0.7) Basophils # (Auto) 0.0 x10^3/uL (0.0-0.2) Sodium Level 140 mmol/L (136-145) Potassium Level 2.9 mmol/L (3.5-5.1) Chloride Level 100 mmol/L (98-107) Carbon Dioxide Level 26 mmol/L (21-32) Anion Gap 14 (6-14) Blood Urea Nitrogen 8 mg/dL (7-20) Creatinine 0.7 mg/dL (0.6-1.0) Estimated GFR (Cockcroft-Gault) 84.0 BUN/Creatinine Ratio 11 (6-20) Glucose Level 109 mg/dL (70-99) Calcium Level 8.8 mg/dL (8.5-10.1) Magnesium Level 1.5 mg/dL (1.8-2.4) Total Bilirubin 2.0 mg/dL (0.2-1.0) Aspartate Amino Transf (AST/SGOT) 26 U/L (15-37) Alanine Aminotransferase (ALT/SGPT) 21 U/L (14-59) Alkaline Phosphatase 93 U/L (46-116) Troponin I High Sensitivity 33 ng/L (4-50) 35 ng/L (4-50) KJ-Mdt-N-Type Natriuretic Peptide 1524 pg/mL (0-124) Total Protein 7.6 g/dL (6.4-8.2) Albumin 3.4 g/dL (3.4-5.0) Albumin/Globulin Ratio 0.8 (1.0-1.7) Thyroid Stimulating Hormone (TSH) 2.709 uIU/mL (0.358-3.74) Ethyl Alcohol Level 20 mg/dL (0-10) Urine Color Anayeli Urine Clarity Clear Urine pH 6.0 (<5.0-8.0) Urine Specific [place] 1.015 (1.000-1.030) Urine Protein 100 mg/dL (NEG-TRACE) Urine Glucose (UA) Negative mg/dL (NEG) Urine Ketones (Stick) Trace mg/dL (NEG) Urine Blood Moderate (NEG) Urine Nitrite Negative (NEG) Urine Bilirubin Small (NEG) Urine Urobilinogen Dipstick 1.0 mg/dL (0.2 mg/dL) Urine Leukocyte Esterase Small (NEG) Urine RBC 3-5 /HPF (0-2) Urine WBC 5-10 /HPF (0-4) Urine Squamous Epithelial Cells Many /LPF Urine Bacteria Few /HPF (0-FEW) Urine Mucus Slight /LPF Urine Opiates Screen Neg (NEG) Urine Methadone Screen Neg (NEG) Urine Barbiturates Neg (NEG) Urine Phencyclidine Screen Neg (NEG) Urine Amphetamine/Methamphetamine Neg (NEG) Urine Benzodiazepines Screen Pos (NEG) Urine Cocaine Screen Neg (NEG) Urine Cannabinoids Screen Neg (NEG) Urine Ethyl Alcohol Pos (NEG) Coronavirus (COVID-19)(PCR) Not detected (NOT DETECTD) Influenza Type A Antigen Negative (NEGATIVE) Influenza Type B Antigen Negative (NEGATIVE) SARS-CoV-2 Antigen (Rapid) Negative (NEGATIVE) Test 10/07/21 20:50 10/07/21 21:10 10/08/21 06:05 Troponin I High Sensitivity 33 ng/L (4-50) Lactic Acid Level 1.0 mmol/L (0.4-2.0) White Blood Count 7.2 x10^3/uL (4.0-11.0) Red Blood Count 4.22 x10^6/uL (3.50-5.40) Hemoglobin 15.1 g/dL (12.0-15.5) Hematocrit 43.7 % (36.0-47.0) Mean Corpuscular Volume 104 fL (79-100) Mean Corpuscular Hemoglobin 36 pg (25-35) Mean Corpuscular Hemoglobin Concent 35 g/dL (31-37) Red Cell Distribution Width 13.4 % (11.5-14.5) Platelet Count 197 x10^3/uL (140-400) Neutrophils (%) (Auto) 72 % (31-73) Lymphocytes (%) (Auto) 18 % (24-48) Monocytes (%) (Auto) 9 % (0-9) Eosinophils (%) (Auto) 1 % (0-3) Basophils (%) (Auto) 1 % (0-3) Neutrophils # (Auto) 5.2 x10^3/uL (1.8-7.7) Lymphocytes # (Auto) 1.3 x10^3/uL (1.0-4.8) Monocytes # (Auto) 0.7 x10^3/uL (0.0-1.1) Eosinophils # (Auto) 0.0 x10^3/uL (0.0-0.7) Basophils # (Auto) 0.0 x10^3/uL (0.0-0.2) Sodium Level 142 mmol/L (136-145) Potassium Level 3.6 mmol/L (3.5-5.1) Chloride Level 103 mmol/L (98-107) Carbon Dioxide Level 26 mmol/L (21-32) Anion Gap 13 (6-14) Blood Urea Nitrogen 11 mg/dL (7-20) Creatinine 0.7 mg/dL (0.6-1.0) Estimated GFR (Cockcroft-Gault) 84.0 BUN/Creatinine Ratio 16 (6-20) Glucose Level 107 mg/dL (70-99) Calcium Level 8.2 mg/dL (8.5-10.1) Magnesium Level 2.6 mg/dL (1.8-2.4) Total Bilirubin 2.0 mg/dL (0.2-1.0) Aspartate Amino Transf (AST/SGOT) 22 U/L (15-37) Alanine Aminotransferase (ALT/SGPT) 21 U/L (14-59) Alkaline Phosphatase 81 U/L (46-116) Total Protein 6.8 g/dL (6.4-8.2) Albumin 2.9 g/dL (3.4-5.0) Albumin/Globulin Ratio 0.7 (1.0-1.7) Triglycerides Level 69 mg/dL (0-150) Cholesterol Level 202 mg/dL (0-200) LDL Cholesterol, Calculated 133 mg/dL (0-100) VLDL Cholesterol, Calculated 14 mg/dL (0-40) Non-HDL Cholesterol Calculated 147 mg/dL (0-129) HDL Cholesterol 55 mg/dL (40-60) Cholesterol/HDL Ratio 3.7 Assessment and Plan Assessmemt and Plan Problems Medical Problems: (1) Atrial fibrillation with RVR Status: Acute (2) ETOH abuse Status: Acute (3) Hypokalemia Status: Acute (4) RLL pneumonia Status: Acute Comment Review of Relevant I have reviewed the following items joanna (where applicable) has been applied. Medications: Current Medications Medications (Trade) Dose Ordered Sig/Toan Route PRN Reason Start Time Stop Time Status Last Admin Dose Admin Diltiazem HCl (Cardizem Iv Push) 20 mg 1X ONCE IVP 10/07/21 13:45 10/07/21 13:46 DC 10/07/21 14:20 Aspirin (Estefania Aspirin) 325 mg 1X ONCE PO 10/07/21 13:45 10/07/21 13:46 DC 10/07/21 14:19 Diltiazem HCl 125 mg/Sodium Chloride 125 ml @ 10 mls/hr 1X ONCE IV 10/07/21 13:51 10/08/21 02:14 DC 10/07/21 15:24 Potassium Chloride (Klor-Con) 40 meq 1X ONCE PO 10/07/21 14:45 10/07/21 14:46 DC 10/07/21 15:23 Ondansetron HCl (Zofran) 4 mg 1X ONCE IVP 10/07/21 15:45 10/07/21 15:46 DC 10/07/21 15:52 Ceftriaxone Sodium (Rocephin) 1 gm 1X ONCE IVP 10/07/21 16:45 10/07/21 16:53 DC 10/07/21 17:40 Potassium Chloride (Klor-Con) 40 meq 1X ONCE PO 10/07/21 19:30 10/07/21 19:31 DC 10/07/21 22:22 Magnesium Sulfate 100 ml @ 25 mls/hr 1X ONCE IV 10/07/21 19:30 10/07/21 23:29 DC 10/07/21 22:39 Multivitamins 10 ml/Thiamine HCl 100 mg/Folic Acid 1 mg/Sodium Chloride 1,011.2 ml @ 1,000.088 mls/hr 1X ONCE IV 10/07/21 20:00 10/07/21 21:00 DC 10/07/21 20:00 Vitamin B Complex (Folbic Tablet) 1 tab DAILY PO 10/08/21 09:00 10/08/21 09:00 Lorazepam (Ativan) 1 mg PRN Q6HRS PRN PO ANXIETY / AGITATION 10/07/21 19:30 10/07/21 22:22 Apixaban (Eliquis) 5 mg BID PO 10/07/21 21:00 10/08/21 09:00 Justifications for Admission Other Justification KIRK WAY MD Oct 08, 2021 11:54
--- NOTE | 2021-10-08 12:45 | CARD ---
MR#: [id number] Date of Study: 10/08/2021 Ordering Physician: ALMAS SHORT, Referring Physician: ALMAS SHORT, Tech: Mel Davis, [facility] APPROVED REPORT EXAM: Two-dimensional and M-mode echocardiogram with Doppler and color Doppler. Other Information Quality : AverageHR: 86bpm INDICATION Atrial Fibrillation RISK FACTORS Smoking 2D DIMENSIONS Left Atrium(2D)5.7 (1.6-4.0cm)IVSd1.5 (0.7-1.1cm) Aortic Root(2D)3.3 (2.0-3.7cm)LVDd4.8 (3.9-5.9cm) LVOT Diameter2.1 (1.8-2.4cm)PWd1.4 (0.7-1.1cm) LVDs3.7 (2.5-4.0cm)FS (%) 23.3 % SV50.0 ml Aortic Valve AoV Peak Marlon.204.2cm/sAoV VTI39.0cm AO Peak GR.16.7mmHgLVOT VTI 25.64cm AO Mean GR.10mmHg Mitral Valve MV E Peak Gr.9mmHgMV E Mean Gr.4mmHg TDI Lateral E' P. V8.24cm/sMedial E' P. V12.10cm/s Tricuspid Valve TR P. [id number] [id number] TR Peak Gr.[id number] LEFT VENTRICLE The left ventricle is normal size. There is moderate concentric left ventricular hypertrophy. The lef t ventricular systolic function is normal. The Ejection Fraction is 55%. There is normal LV segmental wall motion. Diastology indeterminate due to atrial fibrillation. RIGHT VENTRICLE The right ventricle is normal size. There is normal right ventricular wall thickness. The right ventr icular systolic function is normal. ATRIA The left atrium is severely dilated. The right atrium is borderline dilated. The interatrial septum i s intact with no evidence for an atrial septal defect or patent foramen ovale as noted on 2-D or Dopp ler imaging. AORTIC VALVE The aortic valve is mildly thickened. Doppler and Color Flow revealed trace aortic regurgitation. The re is no significant aortic valvular stenosis. Calculated aortic valve area is 2.24 cm2 with maximum pressure gradient of 21 mmHg and mean pressure gradient of 10 mmHg. MITRAL VALVE Mitral annular calcification is mild. There is no evidence of mitral valve prolapse. There is no mitr al valve stenosis. Doppler and Color-flow revealed trace mitral regurgitation. TRICUSPID VALVE The tricuspid valve is normal in structure and function. Doppler and Color Flow revealed trace tricus pid regurgitation with an estimated PAP of 34 mmHg. There is no tricuspid valve stenosis. PULMONIC VALVE The pulmonic valve is not well visualized. Doppler and Color Flow revealed trace pulmonic valvular re gurgitation. GREAT VESSELS The aortic root is normal in size. The IVC is normal in size and collapses >50% with inspiration. PERICARDIAL EFFUSION There is no evidence of significant pericardial effusion. Critical Notification Critical Value: No <Conclusion> The left ventricular systolic function is normal. The Ejection Fraction is 55%. There is normal LV segmental wall motion. The left atrium is severely dilated. Trace mitral regurgitation. Trace mitral regurgitation. Trace tricuspid regurgitation with an estimated PAP of 34 mmHg. There is no evidence of significant pericardial effusion. Signed by : Gregory Fernando, Electronically Approved : 10/08/2021 12:44:52
--- NOTE | 2021-10-08 13:02 | NUR ---
SS following for discharge planning. SS reviewed pt chart and discussed with pt RN. Pt is from home and is currently requiring oxygen at four liters nasal canula. COVID19 negative. Cardiology following. Casey kaur. PAT team consulted. Referral to PAT team made for assessment and recommendations. Probable need for PT/OT when medically ready to participate. Per physician request, SS provided pt with resources to apply for Social Security benefits. SS will continue to follow for discharge planning.
[2021-10-08] MEDS ORDERED: diphenhydrAMINE HCL 25 MG CAPSULE PO PRN (17:30)
[2021-10-08] MEDS ORDERED: METOPROLOL TART IMMED RELEASE 25 MG TABLET. PO SCH (21:00)
[2021-10-09 03:09] VITALS: BP 142/82
[2021-10-09 07:00] VITALS: BP 122/91
[2021-10-09] MEDS: IPRATRPIUM/ALBUTEROL 0.5/2.5MG 3 ML NEBU. NEB SCH ×2 (07:15→10:47)
[2021-10-09] MEDS ORDERED: METOPROLOL IV PUSH 5 MG/5 ML VIAL. IVP ONE (08:30)
[2021-10-09] MEDS ORDERED: METO25TA4 PO (08:31)
[2021-10-09] MEDS ORDERED: APIX5TAB PO (08:31)
[2021-10-09] MEDS ORDERED: CYAN1TAB19 PO (08:31)
--- NOTE | 2021-10-09 08:33 | SNU/HH DC ---
DISCHARGE WITH HOME HEALTH DISCHARGE INFORMATION: Discharge Date: Oct 09, 2021 Final Diagnosis: acute diastolic CHF Atrial fib RVR tobacco use disorder hypokalemia EtOH abuse Problems Medical Problems: (1) Atrial fibrillation with RVR Status: Acute (2) ETOH abuse Status: Acute (3) Hypokalemia Status: Acute (4) RLL pneumonia Status: Acute Condition on Discharge: Stable CODE STATUS: Code Status: Full HOME HEALTH: Face to Face: I certify this patient is under my care and that I, had a face to face encounter that meets the physician face to face encounter requirements with this patient on 10/09 Medical Complications: CHF [facility] For: Assess Cardiopulm Status, Medication Management RN For Eval/Treatment: Yes Physical Therapy For: Evalulation/Treatment Occupational Therapy For: Evaluation/Treatment Pt Meets Homebound Status: Poor coordination w/ amb., Unsteady balance w/ amb, POST DISCHARGE ORDERS: Activity Instructions for Disc: No restrictions Weight Bearing Status after Di: No restrictions, Full weight bearing DIET AFTER DISCHARGE: Regular TREATMENT/EQUIPMENT ORDERS: Adaptive Equipment Issued: None CERTIFICATION STATEMENT: Certification Statement: Certification Statement: Based on the above finding, I certify that this patient is confined to the home and needs intermittent snf care, physical therapy and/or speech therapy, or continues to need occupational therapy.~ This patient is under my care, and I have initiated the establishment of the plan of care.~ This patient will be followed by myself or a community physician who will periodically review the plan of care. Home Meds Active Scripts Metoprolol Tartrate (METOPROLOL TARTRATE) 25 Mg Tablet, 50 MG PO BID for atrial fibrillation, #60 TAB 1 Refill Prov:KIRK WAY MD 10/09/21 Apixaban (ELIQUIS) 5 Mg Tablet, 5 MG PO BID for atrial fibrillation, #60 TAB 2 Refills Prov:KIRK WAY MD 10/09/21 Cyanocobalamin/Fa/Pyridoxine (FOLBIC TABLET) 1 Each Tablet, 1 TAB PO DAILY for vitamin def, #30 TAB Prov:KIRK WAY MD 10/09/21 Reported Medications Prochlorperazine Maleate (Compazine) 10 Mg Tablet, 1 TAB PO Q6HRS for NAUSEA for 30 Days, #120 TAB 0 Refills 10/07/21 Alprazolam (XANAX) 1 Mg Tablet, 1 MG PO PRN Q6HRS PRN for ANXIETY / AGITATION, TAB 0 Refills 10/07/21 Discontinued Reported Medications Aspirin (ASPIRIN) 325 Mg Tablet, 1 TAB PO DAILY for PREVENTION , #30 TAB 5 Refills 10/07/[address] MD Oct 09, 2021 08:33
--- NOTE | 2021-10-09 08:37 | PDOC3 ---
Discharge Summary Visit Information Date of Admission: Oct 07, 2021 Date of Discharge: Oct 09, 2021 Final Diagnosis acute hypoxic respiratory failure Acute diastolic CHF atrial fibrillation with RVR tobacco use disorder, cessation rec. acute hypokalemia anxiety disorder, on home Xanax, alcohol abuse disorder, banana bag given weakness, acquired Problems Medical Problems: (1) Atrial fibrillation with RVR Status: Acute (2) ETOH abuse Status: Acute (3) Hypokalemia Status: Acute (4) RLL pneumonia Status: Acute Brief Hospital Course Allergies Allergies Coded Allergies Type Severity Reaction Last Updated Verified No Known Drug Allergies 10/07/21 No Vital Signs Vital Signs Date Time Temp Pulse Resp B/P (MAP) Pulse Ox O2 Delivery O2 Flow Rate FiO2 10/09/21 07:00 97.6 87 18 122/91 (101) 95 Nasal Cannula 2.0 97.6 Lab Results Laboratory Tests Test 10/07/21 13:21 10/07/21 15:00 10/07/21 16:50 10/07/21 17:45 White Blood Count 8.8 x10^3/uL (4.0-11.0) Red Blood Count 4.57 x10^6/uL (3.50-5.40) Hemoglobin 16.1 g/dL (12.0-15.5) Hematocrit 47.1 % (36.0-47.0) Mean Corpuscular Volume 103 fL (79-100) Mean Corpuscular Hemoglobin 35 pg (25-35) Mean Corpuscular Hemoglobin Concent 34 g/dL (31-37) Red Cell Distribution Width 13.5 % (11.5-14.5) Platelet Count 221 x10^3/uL (140-400) Neutrophils (%) (Auto) 72 % (31-73) Lymphocytes (%) (Auto) 18 % (24-48) Monocytes (%) (Auto) 10 % (0-9) Eosinophils (%) (Auto) 0 % (0-3) Basophils (%) (Auto) 0 % (0-3) Neutrophils # (Auto) 6.3 x10^3/uL (1.8-7.7) Lymphocytes # (Auto) 1.6 x10^3/uL (1.0-4.8) Monocytes # (Auto) 0.9 x10^3/uL (0.0-1.1) Eosinophils # (Auto) 0.0 x10^3/uL (0.0-0.7) Basophils # (Auto) 0.0 x10^3/uL (0.0-0.2) Sodium Level 140 mmol/L (136-145) Potassium Level 2.9 mmol/L (3.5-5.1) Chloride Level 100 mmol/L (98-107) Carbon Dioxide Level 26 mmol/L (21-32) Anion Gap 14 (6-14) Blood Urea Nitrogen 8 mg/dL (7-20) Creatinine 0.7 mg/dL (0.6-1.0) Estimated GFR (Cockcroft-Gault) 84.0 BUN/Creatinine Ratio 11 (6-20) Glucose Level 109 mg/dL (70-99) Calcium Level 8.8 mg/dL (8.5-10.1) Magnesium Level 1.5 mg/dL (1.8-2.4) Total Bilirubin 2.0 mg/dL (0.2-1.0) Aspartate Amino Transf (AST/SGOT) 26 U/L (15-37) Alanine Aminotransferase (ALT/SGPT) 21 U/L (14-59) Alkaline Phosphatase 93 U/L (46-116) Troponin I High Sensitivity 33 ng/L (4-50) 35 ng/L (4-50) JL-Wnp-O-Type Natriuretic Peptide 1524 pg/mL (0-124) Total Protein 7.6 g/dL (6.4-8.2) Albumin 3.4 g/dL (3.4-5.0) Albumin/Globulin Ratio 0.8 (1.0-1.7) Thyroid Stimulating Hormone (TSH) 2.709 uIU/mL (0.358-3.74) Ethyl Alcohol Level 20 mg/dL (0-10) Urine Color [place] Urine Clarity Clear Urine pH 6.0 (<5.0-8.0) Urine Specific [place] 1.015 (1.000-1.030) Urine Protein 100 mg/dL (NEG-TRACE) Urine Glucose (UA) Negative mg/dL (NEG) Urine Ketones (Stick) Trace mg/dL (NEG) Urine Blood Moderate (NEG) Urine Nitrite Negative (NEG) Urine Bilirubin Small (NEG) Urine Urobilinogen Dipstick 1.0 mg/dL (0.2 mg/dL) Urine Leukocyte Esterase Small (NEG) Urine RBC 3-5 /HPF (0-2) Urine WBC 5-10 /HPF (0-4) Urine Squamous Epithelial Cells Many /LPF Urine Bacteria Few /HPF (0-FEW) Urine Mucus Slight /LPF Urine Opiates Screen Neg (NEG) Urine Methadone Screen Neg (NEG) Urine Barbiturates Neg (NEG) Urine Phencyclidine Screen Neg (NEG) Urine Amphetamine/Methamphetamine Neg (NEG) Urine Benzodiazepines Screen Pos (NEG) Urine Cocaine Screen Neg (NEG) Urine Cannabinoids Screen Neg (NEG) Urine Ethyl Alcohol Pos (NEG) Coronavirus (COVID-19)(PCR) Not detected (NOT DETECTD) Influenza Type A Antigen Negative (NEGATIVE) Influenza Type B Antigen Negative (NEGATIVE) SARS-CoV-2 Antigen (Rapid) Negative (NEGATIVE) Test 10/07/21 20:50 10/07/21 21:10 10/08/21 06:05 10/09/21 07:43 Troponin I High Sensitivity 33 ng/L (4-50) Lactic Acid Level 1.0 mmol/L (0.4-2.0) White Blood Count 7.2 x10^3/uL (4.0-11.0) Red Blood Count 4.22 x10^6/uL (3.50-5.40) Hemoglobin 15.1 g/dL (12.0-15.5) Hematocrit 43.7 % (36.0-47.0) Mean Corpuscular Volume 104 fL (79-100) Mean Corpuscular Hemoglobin 36 pg (25-35) Mean Corpuscular Hemoglobin Concent 35 g/dL (31-37) Red Cell Distribution Width 13.4 % (11.5-14.5) Platelet Count 197 x10^3/uL (140-400) Neutrophils (%) (Auto) 72 % (31-73) Lymphocytes (%) (Auto) 18 % (24-48) Monocytes (%) (Auto) 9 % (0-9) Eosinophils (%) (Auto) 1 % (0-3) Basophils (%) (Auto) 1 % (0-3) Neutrophils # (Auto) 5.2 x10^3/uL (1.8-7.7) Lymphocytes # (Auto) 1.3 x10^3/uL (1.0-4.8) Monocytes # (Auto) 0.7 x10^3/uL (0.0-1.1) Eosinophils # (Auto) 0.0 x10^3/uL (0.0-0.7) Basophils # (Auto) 0.0 x10^3/uL (0.0-0.2) Sodium Level 142 mmol/L (136-145) Potassium Level 3.6 mmol/L (3.5-5.1) Chloride Level 103 mmol/L (98-107) Carbon Dioxide Level 26 mmol/L (21-32) Anion Gap 13 (6-14) Blood Urea Nitrogen 11 mg/dL (7-20) Creatinine 0.7 mg/dL (0.6-1.0) Estimated GFR (Cockcroft-Gault) 84.0 BUN/Creatinine Ratio 16 (6-20) Glucose Level 107 mg/dL (70-99) Calcium Level 8.2 mg/dL (8.5-10.1) Magnesium Level 2.6 mg/dL (1.8-2.4) Total Bilirubin 2.0 mg/dL (0.2-1.0) Aspartate Amino Transf (AST/SGOT) 22 U/L (15-37) Alanine Aminotransferase (ALT/SGPT) 21 U/L (14-59) Alkaline Phosphatase 81 U/L (46-116) Total Protein 6.8 g/dL (6.4-8.2) Albumin 2.9 g/dL (3.4-5.0) Albumin/Globulin Ratio 0.7 (1.0-1.7) Triglycerides Level 69 mg/dL (0-150) Cholesterol Level 202 mg/dL (0-200) LDL Cholesterol, Calculated 133 mg/dL (0-100) VLDL Cholesterol, Calculated 14 mg/dL (0-40) Non-HDL Cholesterol Calculated 147 mg/dL (0-129) HDL Cholesterol 55 mg/dL (40-60) Cholesterol/HDL Ratio 3.7 Glucose (Fingerstick) 108 mg/dL (70-99) Laboratory Tests Test 10/09/21 07:43 Glucose (Fingerstick) 108 mg/dL (70-99) Brief Hospital Course admit aftrer days of shortness of breath, AFIB RVR seen at PCP and urgent care days [place] and she refused admit until 10/07, acute CHF then, cardizem gtt started EtOH abuse noted by labs, discussed, she met with PAT team CV consult, Echo OK, meds to slow, rate control f./u primaryh Discharge Information Condition at Discharge: Improved Follow Up: Weeks Disposition/Orders: D/C to Home w/ HH Scheduled Apixaban (Eliquis) 5 Mg Tablet, 5 MG PO BID for atrial fibrillation, #60 Ref 2 Prescribed by: KIRK WAY on 10/09/21830 Cyanocobalamin/Fa/Pyridoxine (Folbic Tablet) 1 Each Tablet, 1 TAB PO DAILY for vitamin def, #30 Prescribed by: KIRK WAY on 10/09/21830 Metoprolol Tartrate (Metoprolol Tartrate) 25 Mg Tablet, 50 MG PO BID for atrial fibrillation, #60 Ref 1 Prescribed by: KIRK WAY on 10/09/21830 Prochlorperazine Maleate (Compazine) 10 Mg Tablet, 1 TAB PO Q6HRS for NAUSEA for 30 Days, #120 Ref 0 (Reported) Entered as Reported by: Armando Clifford on 10/07/212050 Last Taken: UNKNOWN on Unknown Date & Time Last Action: New Order on 10/07/212050 by Armando Clifford Scheduled PRN Alprazolam (Xanax) 1 Mg Tablet, 1 MG PO PRN Q6HRS PRN for ANXIETY / AGITATION, Ref 0 (Reported) Entered as Reported by: Armando Clifford on 10/07/212050 Last Taken: UNKNOWN on Unknown Date & Time Last Action: New Order on 10/07/212050 by Armando Clifford Discontinued Medications Aspirin (Aspirin) 325 Mg Tablet, 1 TAB PO DAILY for PREVENTION , #30 Ref 5 (Reported) Entered as Reported by: Armando Clifford on 10/07/212050 Last Taken: UNKNOWN on Unknown Date & Time Last Action: New Order on 10/07/212050 by Armando Clifford Patient Instructions Patient Instructions face to face DC home 33 minutes, 2 visits Justicifation of Admission Dx: Justifications for Admission: Justification of Admission Dx: Yes (acute chf) KIRK WAY MD Oct 09, 2021 08:37
[2021-10-09] MEDS: APIXABAN 5 MG TABLET. PO SCH (08:42)
[2021-10-09] MEDS: VITAMIN B12,B9,B6 COMPLEX 1 TABLET. PO SCH (08:42)
[2021-10-09 08:45] VITALS: BP 122/91
[2021-10-09] MEDS ORDERED: CHOLECALCIFEROL (VITAMIN D3) 5,000 UNIT CAPSULE PO SCH (09:00)
[2021-10-09] MEDS ORDERED: POTASSIUM CHLORIDE 20 MEQ TABLET.ER. PO ONE (09:00)
[2021-10-09] MEDS ORDERED: METOPROLOL TART IMMED RELEASE 25 MG TABLET. PO SCH (09:00)
[2021-10-09] MEDS ORDERED: DIGOXIN 125 MCG TABLET. PO SCH (09:00)
--- NOTE | 2021-10-09 10:00 | NUR ---
Pt bed alarm sounded, nurse responded to room, found pt sitting on floor, no reports of pain or shortness of breath. Pt refused vital signs. Pt very impulsive, reminded and educated about use of call light multiple times, bed alarm set. Notified Dr. Alamo and nursing supervisor tan room. Will continue to monitor.
--- NOTE | 2021-10-09 10:46 | NUR ---
SS following up with discharge planning. SS reviewed pt chart and discussed with pt RN. Pt is currently on room air. COVID19 negative. Discharge order on the chart for home with home healthcare. Discharge orders and referral phoned and faxed to [facility], ; fax [phone]. Pt reported that she has transportation to home. Pt's RN notified.
--- NOTE | 2021-10-09 15:13 | PDOC ---
PROGRESS NOTES Date of Service DATE: 10/09/21 TIME: 15:09 Subjective Subjective Patient seen and examined Objective Objective Vital Signs Date Time Temp Pulse Resp B/P (MAP) Pulse Ox O2 Delivery O2 Flow Rate FiO2 10/09/21 08:45 88 122/91 10/09/21 08:00 Nasal Cannula 3.0 10/09/21 07:00 97.6 18 95 97.6 Intake and Output 10/09/21 07:00 Intake Total 1230 ml Output Total 0 ml Balance 1230 ml Intake Oral 1230 ml Output Urine Total 0 ml # Voids 3 Physical Exam Abdomen: Normal bowel sounds Heart: Other (Irregularly irregular rhythm) General: No acute distress Lungs: Clear to auscultation Assessment Assessment Problems Medical Problems: (1) Atrial fibrillation with RVR Status: Acute (2) ETOH abuse Status: Acute (3) Hypokalemia Status: Acute (4) RLL pneumonia Status: Acute New onset AFIB. Rate is under better control. We will continue present medications including anticoagulation. Office follow-up in 3 weeks. Mild acute probable diastolic CHF. Resolved. Hypokalemia, hypomagnesemia; s/p replacement ETOH abuse Tobaccoism Anxiety Comment Review of Relevant I have reviewed the following items joanna (where applicable) has been applied. Labs Laboratory Tests Test 10/07/21 16:50 10/07/21 17:45 10/07/21 20:50 10/07/21 21:10 Troponin I High Sensitivity 35 ng/L (4-50) 33 ng/L (4-50) Coronavirus (COVID-19)(PCR) Not detected (NOT DETECTD) Influenza Type A Antigen Negative (NEGATIVE) Influenza Type B Antigen Negative (NEGATIVE) SARS-CoV-2 Antigen (Rapid) Negative (NEGATIVE) Lactic Acid Level 1.0 mmol/L (0.4-2.0) Test 10/08/21 06:05 10/09/21 07:43 White Blood Count 7.2 x10^3/uL (4.0-11.0) Red Blood Count 4.22 x10^6/uL (3.50-5.40) Hemoglobin 15.1 g/dL (12.0-15.5) Hematocrit 43.7 % (36.0-47.0) Mean Corpuscular Volume 104 fL (79-100) Mean Corpuscular Hemoglobin 36 pg (25-35) Mean Corpuscular Hemoglobin Concent 35 g/dL (31-37) Red Cell Distribution Width 13.4 % (11.5-14.5) Platelet Count 197 x10^3/uL (140-400) Neutrophils (%) (Auto) 72 % (31-73) Lymphocytes (%) (Auto) 18 % (24-48) Monocytes (%) (Auto) 9 % (0-9) Eosinophils (%) (Auto) 1 % (0-3) Basophils (%) (Auto) 1 % (0-3) Neutrophils # (Auto) 5.2 x10^3/uL (1.8-7.7) Lymphocytes # (Auto) 1.3 x10^3/uL (1.0-4.8) Monocytes # (Auto) 0.7 x10^3/uL (0.0-1.1) Eosinophils # (Auto) 0.0 x10^3/uL (0.0-0.7) Basophils # (Auto) 0.0 x10^3/uL (0.0-0.2) Sodium Level 142 mmol/L (136-145) Potassium Level 3.6 mmol/L (3.5-5.1) Chloride Level 103 mmol/L (98-107) Carbon Dioxide Level 26 mmol/L (21-32) Anion Gap 13 (6-14) Blood Urea Nitrogen 11 mg/dL (7-20) Creatinine 0.7 mg/dL (0.6-1.0) Estimated GFR (Cockcroft-Gault) 84.0 BUN/Creatinine Ratio 16 (6-20) Glucose Level 107 mg/dL (70-99) Calcium Level 8.2 mg/dL (8.5-10.1) Magnesium Level 2.6 mg/dL (1.8-2.4) Total Bilirubin 2.0 mg/dL (0.2-1.0) Aspartate Amino Transf (AST/SGOT) 22 U/L (15-37) Alanine Aminotransferase (ALT/SGPT) 21 U/L (14-59) Alkaline Phosphatase 81 U/L (46-116) Total Protein 6.8 g/dL (6.4-8.2) Albumin 2.9 g/dL (3.4-5.0) Albumin/Globulin Ratio 0.7 (1.0-1.7) Triglycerides Level 69 mg/dL (0-150) Cholesterol Level 202 mg/dL (0-200) LDL Cholesterol, Calculated 133 mg/dL (0-100) VLDL Cholesterol, Calculated 14 mg/dL (0-40) Non-HDL Cholesterol Calculated 147 mg/dL (0-129) HDL Cholesterol 55 mg/dL (40-60) Cholesterol/HDL Ratio 3.7 Glucose (Fingerstick) 108 mg/dL (70-99) Laboratory Tests Test 10/09/21 07:43 Glucose (Fingerstick) 108 mg/dL (70-99) Microbiology 10/07/21 Blood Culture - Preliminary, Resulted NO GROWTH AFTER 1 DAY 10/07/21 Urine Culture - Final, Complete Medications Current Medications Diltiazem HCl (Cardizem Iv Push) 20 mg 1X ONCE IVP Last administered on 10/07/21at 14:20; Start 10/07/21 at 13:45; Stop 10/07/21 at 13:46; Status DC Aspirin (TopChalks Aspirin) 325 mg 1X ONCE PO Last administered on 10/07/21at 14:19; Start 10/07/21 at 13:45; Stop 10/07/21 at 13:46; Status DC Diltiazem HCl 125 mg/Sodium Chloride 125 ml @ 10 mls/hr 1X ONCE IV ; Start 10/07/21 at 13:45; Stop 10/07/21 at 13:51; Status DC Diltiazem HCl 125 mg/Sodium Chloride 125 ml @ 10 mls/hr 1X ONCE IV Last admi nistered on 10/07/21at 15:24; Start 10/07/21 at 13:51; Stop 10/08/21 at 02:14; Status DC Potassium Chloride (Klor-Con) 40 meq 1X ONCE PO Last administered on 10/07/21at 15:23; Start 10/07/21 at 14:45; Stop 10/07/21 at 14:46; Status DC Ondansetron HCl (Zofran) 4 mg 1X ONCE IVP Last administered on 10/07/21at 15:52; Start 10/07/21 at 15:45; Stop 10/07/21 at 15:46; Status DC Ondansetron HCl (Zofran) 4 mg PRN Q8HRS PRN IVP NAUSEA/VOMITING Last administered on 10/08/21at 12:37; Start 10/07/21 at 16:45; Stop 10/08/21 at 16:44; Status DC Morphine Sulfate (Morphine Sulfate) 2 mg PRN Q2HR PRN IVP PAIN; Start 10/07/21 at 16:45; Stop 10/08/21 at 16:44; Status DC Acetaminophen (Tylenol) 650 mg PRN Q4HRS PRN PO FEVER > 100.3'F; Start 10/07/21 at 16:45; Stop 10/08/21 at 16:44; Status DC Ceftriaxone Sodium (Rocephin) 1 gm 1X ONCE IVP Last administered on 10/07/21at 17:40; Start 10/07/21 at 16:45; Stop 10/07/21 at 16:53; Status DC Potassium Chloride (Klor-Con) 40 meq 1X ONCE PO Last administered on 10/07/21at 22:22; Start 10/07/21 at 19:30; Stop 10/07/21 at 19:31; Status DC Magnesium Sulfate 100 ml @ 25 mls/hr 1X ONCE IV Last administered on 10/07/21at 22:39; Start 10/07/21 at 19:30; Stop 10/07/21 at 23:29; Status DC Multivitamins 10 ml/Thiamine HCl 100 mg/Folic Acid 1 mg/Sodium Chloride 1,011.2 ml @ 1,000.088 mls/hr 1X ONCE IV Last administered on 10/07/21at 20:00; Start 10/07/21 at 20:00; Stop 10/07/21 at 21:00; Status DC Vitamin B Complex (Folbic Tablet) 1 tab DAILY PO Last administered on 10/09/21at 08:42; Start 10/08/21 at 09:00; Stop 10/09/21 at 11:20; Status DC Lorazepam (Ativan) 1 mg PRN Q6HRS PRN PO ANXIETY / AGITATION Last administered on 10/08/21at 23:13; Start 10/07/21 at 19:30; Stop 10/09/21 at 11:20; Status DC Apixaban (Eliquis) 5 mg BID PO Last administered on 10/09/21at 08:42; Start 10/07/21 at 21:00; Stop 10/09/21 at 11:20; Status DC Albuterol/ Ipratropium (Duoneb) 3 ml RTQID NEB Last administered on 10/08/21at 20:00; Start 10/07/21 at 20:20; Stop 10/09/21 at 11:20; Status DC Nicotine (Nicoderm Cq 21mg) 1 patch PRN DAILY PRN TD SMOKING CESSATION; Start 10/07/21 at 20:15; Stop 10/09/21 at 11:20; Status DC Info (Anti-Coagulation Monitoring By Pharmacy) 1 each PRN DAILY PRN MC PER PROTOCOL; Start 10/07/21 at 20:30; Stop 10/09/21 at 11:20; Status DC Diltiazem HCl 125 mg/Dextrose 125 ml @ 5 mls/hr CONT PRN IV PER PROTOCOL Last administered on 10/08/21at 12:51; Start 10/08/21 at 08:45; Stop 10/09/21 at 11:20; Status DC Lorazepam (Ativan Inj) 2 mg PRN Q1HR PRN IV For CIWA 8-14; Start 10/08/21 at 12:00; Stop 10/09/21 at 11:20; Status DC Lorazepam (Ativan Inj) 4 mg PRN Q1HR PRN IV For CIWA 15 or greater; Start 10/08/21 at 12:00; Stop 10/09/21 at 11:20; Status DC Metoprolol Tartrate (Lopressor) 25 mg BID PO Last administered on 10/08/21at 20:08; Start 10/08/21 at 21:00; Stop 10/09/21 at 08:21; Status DC Diphenhydramine HCl (Benadryl) 25 mg PRN QHS PRN PO INSOMNIA Last administered on 10/08/21at 20:05; Start 10/08/21 at 17:30; Stop 10/09/21 at 11:20; Status DC Digoxin (Lanoxin) 125 mcg DAILY PO Last administered on 10/09/21at 08:43; Start 10/09/21 at 09:00; Stop 10/09/21 at 11:20; Status DC Metoprolol Tartrate (Lopressor) 50 mg BID PO Last administered on 10/09/21at 08:44; Start 10/09/21 at 09:00; Stop 10/09/21 at 11:20; Status DC Metoprolol Tartrate (Lopressor Vial) 5 mg 1X ONCE IVP Last administered on 10/09/21at 08:45; Start 10/09/21 at 08:30; Stop 10/09/21 at 08:31; Status DC Potassium Chloride (Klor-Con) 40 meq 1X ONCE PO Last administered on 10/09/21at 08:43; Start 10/09/21 at 09:00; Stop 10/09/21 at 09:01; Status DC Vitamin D (Vitamin D3) 5,000 unit DAILY PO Last administered on 10/09/21at 08:47; Start 10/09/21 at 09:00; Stop 10/09/21 at 11:20; Status DC Active Scripts Active Metoprolol Tartrate 25 Mg Tablet 50 Mg PO BID Eliquis (Apixaban) 5 Mg Tablet 5 Mg PO BID Folbic Tablet (Cyanocobalamin/Fa/Pyridoxine) 1 Each Tablet 1 Tab PO DAILY Reported Compazine (Prochlorperazine Maleate) 10 Mg Tablet 1 Tab PO Q6HRS 30 Days Xanax (Alprazolam) 1 Mg Tablet 1 Mg PO PRN Q6HRS PRN Vitals/I & O Vital Sign - Last 24 Hours 10/08/21 10/08/21 10/08/21 10/08/21 19:10 20:00 20:00 20:08 Temp 98.5 98.5 Pulse 81 84 Resp 16 B/P (MAP) 85/57 (66) 115/74 (88) 115/74 Pulse Ox 96 O2 Delivery Nasal Cannula Nasal Cannula O2 Flow Rate 4.0 3.0 10/08/21 10/08/21 10/09/21 10/09/21 21:16 23:03 03:09 07:00 Temp 98.9 97.6 97.6 98.9 97.6 97.6 Pulse 73 86 87 Resp 18 16 18 B/P (MAP) 113/80 (91) 142/82 (102) 122/91 (101) Pulse Ox 95 94 95 95 O2 Delivery Nasal Cannula Nasal Cannula Nasal Cannula Nasal Cannula O2 Flow Rate 4.0 1.0 2.0 2.0 10/09/21 10/09/21 10/09/21 10/09/21 08:00 08:43 08:44 08:45 Pulse 88 88 88 B/P (MAP) 122/91 122/91 122/91 O2 Delivery Nasal Cannula O2 Flow Rate 3.0 Intake and Output 10/08/21 10/08/21 10/09/21 15:00 23:00 07:00 Intake Total 390 ml 440 ml 400 ml Output Total 0 ml 0 ml Balance 390 ml 440 ml 400 ml Justifications for Admission Other Justification FANY VENEGAS MD Oct 09, 2021 15:13
== END 2021-10-09 11:20 | disposition home health service (06) | DRG 189 ==
LOC: ER 12:04 → ED HOLD 15:18 → 6 SOUTH 16:14
PROVIDERS: ADMIT Internal Medicine; ATTEND Internal Medicine
DX: J96.01 Acute respiratory failure with hypoxia (principal); I50.31 Acute diastolic (congestive) heart failure; I48.20 Chronic atrial fibrillation, unspecified; E83.42 Hypomagnesemia; E87.6 Hypokalemia; F10.10 Alcohol abuse, uncomplicated; F17.210 Nicotine dependence, cigarettes, uncomplicated; F41.9 Anxiety disorder, unspecified; M19.90 Unspecified osteoarthritis, unspecified site; Z20.822 Contact with and (suspected) exposure to COVID-19; Y90.1 Blood alcohol level of 20-39 mg/100 ml; Z82.49 Family history of ischemic heart disease and other diseases of the circulatory system; Z90.49 Acquired absence of other specified parts of digestive tract; Z90.710 Acquired absence of both cervix and uterus; Z98.82 Breast implant status
CPT/HCPCS: 36415; 71045; 80053; 80061; 80307; 81001; 82962; 83605; 83735; 83880; 84443; 84484; 85025; 87040; 87086; 87428; 93005; 93306; 94640; 94642; 94760; 96365; 96375; 96376; G0480; J0696; J2405; J3411; J3475; J3490; J7030; J7060; U0003; 99285-25; C8929; G0378; Q0163

== ENCOUNTER 2022-01-08 13:51 | Emergency (ER) | payer MEDICARE ==
[~2022-01-08] VITALS: Ht 165.1 cm; Wt 64.4 kg
[~2022-01-08 13:51] MED LIST: ALPR1TAB2 PO; APIX5TAB PO; ASPI325T8 PO; CYAN1TAB19 PO; METO25TA4 PO; PROC10TA57 PO
[2022-01-08 14:28] LABS: BASO % 1 % (0-3); EOS # 0.1 x10^3/uL (0.0-0.7); EOS % 2 % (0-3); HEMATOCRIT 43.3 % (36.0-47.0); HEMOGLOBIN 15.2 g/dL (12.0-15.5); LYMPH # 1.6 x10^3/uL (1.0-4.8); LYMPH % 19 % (24-48); MEAN CORPUSCULAR HEMOGLOBIN 35 pg (25-35); MEAN CORPUSCULAR HGB CONC 35 g/dL (31-37); MEAN CORPUSCULAR VOLUME 99 fL (79-100); MONO # 0.6 x10^3/uL (0.0-1.1); MONO % 8 % (0-9); NEUT # 5.8 x10^3/uL (1.8-7.7); NEUT % 71 % (31-73); PLATELET COUNT 205 x10^3/uL (140-400); RED BLOOD COUNT 4.36 x10^6/uL (3.50-5.40); RED CELL DISTRIBUTION WIDTH 13.9 % (11.5-14.5); WHITE BLOOD COUNT 8.2 x10^3/uL (4.0-11.0)
[2022-01-08] MEDS ORDERED: PANTOPRAZOLE IV PUSH 40 MG VIAL. IVP ONE (14:30)
[2022-01-08] MEDS ORDERED: ONDANSETRON PF 4 MG/2 ML VIAL. IVP ONE (14:30)
--- NOTE | 2022-01-08 14:32 | PHYS DOC ---
Past Medical History Past Medical History: A-Fib, P.U.D. Additional Past Medical Histor: alcoholism Past Surgical History: Appendectomy, Hysterectomy Additional Past Surgical Histo: Hernia repair and breast implants and removal of breast implants. Smoking Status: Current Every Day Smoker Alcohol Use: Heavy Drug Use: None General Adult EDM: Chief Complaint: ABDOMINAL PAIN HPI: HPI: 66-year-old female presents with report of abdominal pain at umbilicus with associated nausea that has been ongoing since 0800 this morning. Patient denies any known sick contacts. Reports concerned that she might have a "ulcer ". Patient reports was diagnosed with a gastric ulcer approximately 25 years ago. Patient reports she does not take an acid medication regularly. Patient does re port taking a 20 mg [id number] Pepcid earlier today without significant improvement. Denies any fever or chills. Denies trauma. 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 Patient does report has had some urinary urgency recently. Reports after urination had sensation that she was not able to empty. Review of Systems: Review of Systems: Constitutional: Denies fever or chills Eyes: Denies redness or eye pain HENT: Denies nasal congestion or sore throat Respiratory: Denies cough or shortness of breath Cardiovascular: Denies chest pain or palpitations GI: Reports abdominal pain and nausea; denies vomiting : Denies hematuria; reports urinary urgency Musculoskeletal: Denies back pain or joint pain Integument: Denies rash or skin lesions Neurologic: Denies headache, focal weakness or sensory changes Complete systems were reviewed and found to be within normal limits, except as documented in this note. Heart Score: C/O Chest Pain: N/A Current Medications: Current Medications Medications (Trade) Dose Ordered Sig/[facility] Start Time Stop Time Status Last Admin Dose Admin Ondansetron HCl (Zofran) 4 mg 1X ONCE 01/08/22 14:30 01/08/22 14:31 Pantoprazole Sodium (PROTONIX VIAL for IV PUSH) 40 mg 1X ONCE 01/08/22 14:30 01/08/22 14:31 Sodium Chloride 1,000 ml @ 1,000 mls/hr 1X ONCE 01/08/22 15:00 01/08/22 15:59 Allergies: Allergies: Allergies Coded Allergies Type Severity Reaction Last Updated Verified No Known Drug Allergies 10/07/21 No Physical Exam: PE: Constitutional: Well developed, well nourished, no acute distress, non-toxic appearance HENT: Normocephalic, atraumatic Eyes: Conjunctiva normal, no discharge Neck: Normal range of motion, no tenderness, supple Lungs & Thorax: No respiratory distress, equal chest rise and fall Abdomen: Soft, periumbilical tenderness, no guarding/rebound tenderness/distention Skin: Warm, dry, no erythema, no rash Back: No tenderness, no CVA tenderness Extremities: No tenderness, no edema Neurologic: Alert and oriented X 3, no focal deficits noted Psychologic: Affect normal, judgment normal Current Patient Data: Vital Signs: Vital Signs Date Time Temp Pulse Resp B/P (MAP) Pulse Ox O2 Delivery O2 Flow Rate FiO2 01/08/22 14:13 97.8 109 18 168/92 (117) 100 Room Air 97.8 EKG: EKG: @1412 Afib at 90bpm, QRS 132ms, QT/QTc 420/519ms, baseline artifact noted Radiology/Procedures: Radiology/Procedures: PROCEDURE: CT ABDOMEN PELVIS WO CONTRAST Exam: CT abdomen/pelvis without intravenous contrast Indication: Periumbilical pain Comparison: None Technique: Helical CT imaging performed of the abdomen and pelvis without the use of intravenous contrast. Sagittal and coronal reformats were obtained. One or more of the following individualized dose reduction techniques were utilized for this examination: 1. Automated exposure control 2. Adjustment of the mA and/or kV according to patient size 3. Use of iterative reconstruction technique. Findings: Inherently limited evaluation without intravenous contrast. Lower chest: Mild atelectasis in the lung bases. The atria are enlarged. Liver: Normal noncontrast appearance of the liver. Gallbladder/Biliary Tree: Normal. Pancreas: Normal. Spleen: Normal. Adrenal Glands: Normal. Kidneys/Ureters/Bladder: Kidneys are normal in size. No nephrolithiasis or hydronephrosis. Ureters are normal. There is mild eccentric bladder wall thickening anteriorly on the right. There is a calcification in the bladder wall on the right. Reproductive Organs: Uterus is surgically absent. No adnexal mass. Stomach, small bowel, and colon: Small hiatal hernia. No small bowel obstruction. Appendix is surgically absent. The colon is unremarkable. Vasculature: No aortic aneurysm. Moderate calcified aortic atherosclerosis. Lymph Nodes: No lymphadenopathy. Peritoneum and retroperitoneum: No free fluid or free air. Bones: No acute osseous abnormality. Mild degenerative disc disease. 3 mm a nterolisthesis of L4 on L5. Miscellaneous: None. IMPRESSION: 1. Small hiatal hernia. 2. Mild eccentric bladder wall thickening anteriorly on the right. Findings could be related to cystitis although underlying bladder mass is not excluded. 3. Biatrial enlargement. Electronically signed by: Brittany Fortune MD (01/08/2022 4:05 PM) [id number] Course & Med Decision Making: Course & Med Decision Making Pertinent Labs and Imaging studies reviewed. (See chart for details) Patient presents with report of periumbilical abdominal pain and with associated nausea that started today. Patient does report yesterday noted some sensation she was not completely emptying after urinating. Labs obtained and posted to chart. UA with signs of infection. Empiric antibiotic initiated. Patient also noted to have hypomagnesemia which was replaced. Symptomatic treatment provided. CT abdomen/pelvis with signs of cystitis. Cannot completely exclude a gastric ulcer. Protonix have been provided. Will continue symptomatic treatment with Protonix and Zofran along with empiric antibiotic. Patient stable for discharge with outpatient follow-up with PCP/GI. GI referral provided. Discussed findings and plan with patient, who acknowledges underst anding and agreement. Of note: patient requesting a work note for today through Tuesday. Work note provided. Elizabeth Disclaimer: Elizabeth Disclaimer: This electronic medical record was generated, in whole or in part, using a voice recognition dictation system. Departure Departure Impression: Primary Impression: Abdominal pain Qualified Codes: R10.33 - Periumbilical pain Additional Impressions: Acute UTI (urinary tract infection) Hypomagnesemia Disposition: HOME / SELF CARE / HOMELESS Condition: STABLE Referrals: TUAN WRAY MD (PCP) DARRON TURNER MD Patient Instructions: Abdominal Pain, [id number], Hypomagnesemia, Urinary Tract Infection, [id number]-[id number] Additional Instructions: Increase fluid hydration. Scripts Cephalexin (KEFLEX) 500 Mg Capsule 1 CAP PO TID for 7 Days, #21 CAP Prov: CHRISTY ESTRELLA DO 01/08/22 Pantoprazole Sodium (PROTONIX ) 40 Mg Tablet.dr 40 MG PO DAILYAC for GERD, #20 TAB Prov: CHRISTY ESTRELLA DO 01/08/22 Ondansetron (ONDANSETRON ODT) 4 Mg Tab.rapdis 1 TAB PO PRN Q6-8HRS PRN for NAUSEA, #16 TAB Prov: CHRISTY ESTRELLA DO 01/08/22 CHRISTY ESTRELLA DO January 08, 2022 14:32
[2022-01-08 14:49] LABS: CALCIUM 9.5 mg/dL (8.5-10.1); CREATININE 0.8 mg/dL (0.6-1.0); POTASSIUM 3.6 mmol/L (3.5-5.1)
[2022-01-08 14:56] LABS: MAGNESIUM 1.5 mg/dL (1.8-2.4); TOTAL BILIRUBIN 1.5 mg/dL (0.2-1.0); TOTAL PROTEIN 7.9 g/dL (6.4-8.2)
[2022-01-08] MEDS ORDERED: IV NORMAL SALINE 1000ML BAG 1,000 ML IV ONE (15:00)
[2022-01-08 15:05] LABS: BACTERIA,URINE MANY /HPF (0-FEW); RBC,URINE 0 /HPF (0-2); WBC,URINE TNTC /HPF (0-4)
[2022-01-08] MEDS ORDERED: cefTRIAXone IV Push 1 GM VIAL. IVP ONE (15:45)
[2022-01-08] MEDS ORDERED: MAGNESIUM CHLORIDE ER 64 MG TABLET.ER PO ONE (15:45)
[2022-01-08] MEDS ORDERED: ONDA4TAB12 PO (15:55)
[2022-01-08] MEDS ORDERED: CEPH500C PO (15:55)
[2022-01-08] MEDS ORDERED: PANT40TA77 PO (15:55)
--- NOTE | 2022-01-08 16:07 | RAD ---
Exam: CT abdomen/pelvis without intravenous contrast Indication: Periumbilical pain Comparison: None Technique: Helical CT imaging performed of the abdomen and pelvis without the use of intravenous cont rast. Sagittal and coronal reformats were obtained. One or more of the following individualized dose reduction techniques were utilized for this examinat ion: 1. Automated exposure control 2. Adjustment of the mA and/or kV according to patient size 3. Use of iterative reconstruction technique. Findings: Inherently limited evaluation without intravenous contrast. Lower chest: Mild atelectasis in the lung bases. The atria are enlarged. Liver: Normal noncontrast appearance of the liver. Gallbladder/Biliary Tree: Normal. Pancreas: Normal. Spleen: Normal. Adrenal Glands: Normal. Kidneys/Ureters/Bladder: Kidneys are normal in size. No nephrolithiasis or hydronephrosis. Ureters ar e normal. There is mild eccentric bladder wall thickening anteriorly on the right. There is a calcifi cation in the bladder wall on the right. Reproductive Organs: Uterus is surgically absent. No adnexal mass. Stomach, small bowel, and colon: Small hiatal hernia. No small bowel obstruction. Appendix is surgica lly absent. The colon is unremarkable. Vasculature: No aortic aneurysm. Moderate calcified aortic atherosclerosis. Lymph Nodes: No lymphadenopathy. Peritoneum and retroperitoneum: No free fluid or free air. Bones: No acute osseous abnormality. Mild degenerative disc disease. 3 mm anterolisthesis of L4 on L5 . Miscellaneous: None. IMPRESSION: 1. Small hiatal hernia. 2. Mild eccentric bladder wall thickening anteriorly on the right. Findings could be related to cyst itis although underlying bladder mass is not excluded. 3. Biatrial enlargement. Electronically signed by: Brittany Fortune MD (01/08/2022 4:05 PM) [id number]
[2022-01-08 17:00] VITALS: BP 165/82
--- NOTE | 2022-01-12 08:15 | EKG ---
[facility] [address] [place] [address] Test Date: 2022-01-08 Test Time: 14:12:54 Pat Name: CINDY LOYA Department: Room: Gender: F Answering Service Operator: : [id number] Requested By: CHRISTY ESTRELLA Order Number: [id number] Reading MD: Riccardo Srinivasan MD Measurements Intervals [place] Rate: 90 P: [place]: QRS: -8 QRSD: 132 T: 153 QT: 420 QTc: 519 Interpretive Statements ATRIAL FIBRILLATION NON-SPECIFIC ST/T CHANGES Electronically Signed On 01-12-2022 11:24:56 CDT by Riccardo Srinivasan MD
== END 2022-01-08 17:01 | disposition home or self-care (01) ==
LOC: ER 13:51
DX: N39.0 Urinary tract infection, site not specified (principal); E83.42 Hypomagnesemia; I48.91 Unspecified atrial fibrillation; F17.200 Nicotine dependence, unspecified, uncomplicated; Z90.89 Acquired absence of other organs; Z90.710 Acquired absence of both cervix and uterus; F10.20 Alcohol dependence, uncomplicated; Y90.9 Presence of alcohol in blood, level not specified
CPT/HCPCS: 36415; 74176; 80053; 81001; 82553; 83690; 83735; 84484; 85025; 87077; 87086; 87186; 93005; 96361; 96374; 96375; 99285; C9113; J0696; J2405; J7030